=== PATIENT | female | born 1945 | race Caucasian/White ===

== ENCOUNTER 2018-08-24 07:20 | Inpatient (IN) ==
[2018-08-24] MEDS ORDERED: Lidocaine 1%/Epinephrine 1:100,000 Inj 50 ML Vial INFILTRATN ONE (07:57)
[2018-08-24 08:11] LABS: Baso % (Auto) 0.2 % (0.0-2.0); Eos # (Auto) 0.1 th/mm3 (0.0-0.4); Eos % (Auto) 1.1 % (0.0-4.0); Hematocrit 38.6 % (35.0-46.0); Hemoglobin 12.8 gm/dL (11.6-15.3); Lymph # (Auto) 0.5 th/mm3 (1.0-4.8); Lymph % (Auto) 5.5 % (9.0-44.0); Mean Corpuscular HGB Conc 33.1 % (32.0-36.0); Mean Corpuscular Volume 96.6 fL (80.0-100.0); Mean Platelet Volume 7.5 fL (7.0-11.0); Mono # (Auto) 0.4 th/mm3 (0.0-0.9); Mono % (Auto) 4.3 % (0.0-8.0); Neut # (Auto) 7.3 th/mm3 (1.8-7.7); Neut % (Auto) 88.9 % (16.0-70.0); Platelet Count 244 th/mm3 (150-450); Red Blood Count 3.99 mil/mm3 (4.00-5.30); Red Cell Distribution Width 12.1 % (11.6-17.2); White Blood Count 8.3 th/mm3 (4.0-11.0)
[2018-08-24 08:19] LABS: Chloride 100 meq/L (98-107); Potassium 3.9 meq/L (3.5-5.1); Sodium 137 meq/L (136-145)
[2018-08-24 08:23] LABS: Anion Gap 8 meq/L (5-15); Blood Urea Nitrogen 26 mg/dL (7-18); Calcium 8.6 mg/dL (8.5-10.1); Carbon Dioxide 28.6 meq/L (21.0-32.0); Glucose,Random 287 mg/dL (74-106)
[2018-08-24 08:24] LABS: Activated Partial Thrombo Time 23.4 sec (23.4-31.7); INR 1.1 Ratio; Prothrombin Time 10.7 sec (9.8-11.6)
[2018-08-24 08:26] LABS: Alanine Aminotransferase 36 U/L (10-53); Aspartate Aminotransferase 24 U/L (15-37); Glomerular Filtration Rate 57 mL/min (>89)
[2018-08-24 08:28] LABS: Total Protein 6.5 g/dL (6.4-8.2)
[2018-08-24 08:29] LABS: Alkaline Phosphatase 53 U/L (45-117)
--- NOTE | 2018-08-24 09:10 | CT ---
EXAM DATE: 08/24/2018 8:58 AM EST AGE/SEX: 72 years / Female INDICATIONS: Blood in stool. CLINICAL DATA: This is the patient's initial encounter. Patient reports that signs and symptoms have been present for 1 day and indicates a pain score of 0/10. MEDICAL/SURGICAL HISTORY: Diabetes. Hypercholesterolemia. None. ORAL CONTRAST: No oral contrast ingested. RADIATION DOSE: 16.87 CTDI (mGy) COMPARISON: TLI, US PELVIS, COMPLETE, 01/16/2017. TLI, US TRANSVAGINAL, 01/15/2017. . TECHNIQUE: Multiple contiguous axial images were obtained through the abdomen and pelvis following b olus infusion of 95 ml Omnipaque 350 (iohexol) nonionic water-soluble contrast as a single exam dos e. No oral contrast ingested. Using automated exposure control and adjustment of the mA and/or kV ac cording to patient size, radiation dose was kept as low as reasonably achievable to obtain optimal di agnostic quality images. DICOM format image data is available electronically for review and comparis on. FINDINGS: Lower Lungs: The visualized lower lungs are clear. Liver: The liver has a homogeneous density without space-occupying lesion. There is no dilation of th e biliary tree. There is a densely calcified gallstone identified within the gallbladder neck. No abn ormal wall thickening. Spleen: Homogeneous density without enlargement. Pancreas: Unremarkable without mass or calcification. Kidneys: Normal in size and shape. No evidence of surrounding mass or hydronephrosis. Small right re nal cyst. Adrenal Glands: Unremarkable. Aorta: Scattered atherosclerosis. No evidence of aneurysm. Bowel/Mesentery: There is an ill-defined 5 cm area of soft tissue attenuation identified within the cecum at the ileocecal valve. The adjacent mesenteric fat is normal in appearance. Abdominal Wall: Intact. Retroperitoneum: No evidence of adenopathy in the retrocrural, para-aortic, or deep pelvic regions. Bladder: Contours are smooth. Reproductive Organs: Multiple calcified fibroadenomas within the uterus. Inguinal: The inguinal region is unremarkable without evidence of adenopathy. Bony Structures: Osseous structures are significant for extensive degenerative changes within the fa cet joints, degenerative disc changes. There is a focus of air adjacent to the right and left SI join ts. CONCLUSION: 1. 5 cm soft tissue attenuating mass identified within the lumen of the cecum at the ileocecal valve . This could represent a bolus of stool, however, given the patient's clinical presentation a mass in this location should be further evaluated with colonoscopy. 2. No evidence of inflammatory process within the abdomen or pelvis or evidence of adenopathy. Electronically signed by: Peggy Diallo MD 08/24/2018 9:09 AM EST
--- NOTE | 2018-08-24 09:40 | ED ---
HPI General Chief complaint: Fall Stated complaint: Dizzy/fell laceration 1hr TELEPHONE SERVICE REPRESENTATIVE Time Seen by Provider: 08/24/18 07:57 Source: patient Mode of arrival: ambulatory Limitations: no limitations History of Present Illness MD complaint: Reports gross hematochezia Onset (ago): minute(s) Severity: mild Relieving factors: none Exacerbating factors: none Context: Denies history of GI bleed and anticoagulant use Associated symptoms: Reports weakness (Weakness and dizziness which led to a fall and a resultant right eyebrow laceration) Treatments Prior to Arrival: Reports none Related Data Home Medications Medication Instructions Recorded Confirmed glyburide 5 mg PO DAILY 08/24/18 08/24/18 losartan mg PO DAILY 08/24/18 metformin 500 mg PO BID 08/24/18 08/24/18 simvastatin 20 mg PO QPM 08/24/18 08/24/18 Allergies Allergy/AdvReac Type Severity Reaction Status Date / Time HANNA Inhibitors Allergy Lethargy Verified 08/24/18 07:27 Review of Systems ROS: all other systems reviewed are negative [facility] Medical History Medical History Diabetes 1.5, managed as type 2 (Acute) High cholesterol (Acute) Vertigo (Acute) Social History Social History Substance History: No History of Abuse Smoking Status: Never smoker How Often Do You Have a Drink Containing Alcohol: 2 to 3 times a week Recent Travel in [facility] within the Last 8 Weeks: No Recent Out of Country Travel within the Last 8 Weeks: No Immunization History Tetanus Immunization: <5 Years Exam Const General: cooperative, healthy appearing, comfortable, no acute distress and well developed Orientation: alert, awake and oriented x3 HENMT Head: normal to inspection, normocephalic and laceration (Right eyebrow) Eyes Alignment and Position: alignment normal and position abnormal Conjunctivae: conjunctivae normal Sclera: sclerae normal EOM: EOM intact bilaterally Neck Neck: normal visual inspection and full ROM Chest Chest: normal inspection of the chest Resp Effort & Inspection: normal respiratory effort and able to speak in complete sentences Auscultation: clear to auscultation bilaterally Cardio Rate: regular rate Rhythm: regular rhythm GI Inspection: normal to inspection Palpation: soft and nontender Rectal Exam: normal sphincter tone, abnormal stool maroon, heme positive stool and No mass Back/Spine/Pelvis Cervical Spine: cervical ROM normal Thoracic/Lumbar Spine: thoraco-lumbar ROM normal Skin General: no rashes or lesions noted, turgor normal and dry skin Neuro General: alert, awake, oriented x3, moves all extremities and CN's II-XI intact bilaterally Extrem General: normal to inspection and full ROM Psych Appearance: grossly normal Mental Status: mental status grossly normal Speech and Movement: speech and movement normal Mood: congruent mood Affect: normal affect Attitude: cooperative Thought Process: normal Thought Content: normal Judgment: judgment good Course Consultations Consultation #1: Dr. Blanchard will admit Time: 09:50 Initial Documented Vital Signs Temperature 97.6 F 08/24/18 07:22 Pulse Rate 84 08/24/18 07:22 Respiratory Rate 17 08/24/18 07:22 Blood Pressure 117/59 L 08/24/18 07:22 Pulse Oximetry 98 08/24/18 07:22 Last Documented Vital Signs Temperature 97.6 F 08/24/18 07:22 Pulse Rate 80 08/24/18 09:05 Respiratory Rate 18 08/24/18 09:05 Blood Pressure 113/58 L 08/24/18 09:05 Pulse Oximetry 98 08/24/18 09:05 Critical Care Time Critical Care Time: Yes Total Critical Care Time: 40 Attestation: Time to perform other separately billable procedures was not included in the critical care time. My time did not include minutes spent treating any other patients simultaneously or on activities that did not directly contribute to the patient's treatment. The services I provided to this patient were to treat and/or prevent clinically significant deterioration due to GI bleed with near syncope I provided critical care services requiring my management, as noted below: Chart data review, documentation time, medication orders and management, vital sign assessments/reviewing monitor data, ordering and reviewing lab tests, ordering and interpreting/reviewing x-rays and diagnostic studies, care of the patient and discussion of the patient with the admitting physicians Medical Decision Making MDM Narrative Medical decision making narrative: This patient presents with acute rectal bleeding followed by a near syncopal episode/fall which led to a right eyebrow laceration. This all started just shortly prior to presentation. She reports to grossly bloody stools. She denies any previous similar history. She denies any associated fevers. She denies abdominal pain. She does not take an anticoagulant. Her exam is remarkable for the right eyebrow laceration and burgundy colored, grossly positive stools. Her workup has been completed. The CT is concerning for a mass at the ileocecal junction. I will request admission to the hospital for trending of her CBC as well a GI consultation. Her eyebrow laceration has been repaired by Lee Ann Guido PA-C. Orthostatic vital signs are negative. Medical Screen Exam Complete: Yes Emergency Medical Condition: Yes Differential Diagnosis Differential Diagnosis: Differential diagnosis includes but is not limited to hemorrhoid, diverticulitis, cancer, coagulopathy Lab Data Lab results reviewed: Yes I reviewed the patient's lab results. Result diagrams: 08/24/18 07:50 08/24/18 07:50 Lab Results 08/24/18 08/24/18 08/24/18 Range/Units 07:50 07:50 07:50 CBC w Diff Auto diff final WBC 8.3 (4.0-11.0) th/mm3 RBC 3.99 L (4.00-5.30) mil/mm3 Hgb 12.8 (11.6-15.3) gm/dL Hct 38.6 (35.0-46.0) % MCV 96.6 (80.0-100.0) fL MCH 32.0 (27.0-34.0) pg MCHC 33.1 (32.0-36.0) % RDW 12.1 (11.6-17.2) % Plt Count 244 (150-450) th/mm3 MPV 7.5 (7.0-11.0) fL Neut % (Auto) 88.9 H (16.0-70.0) % Lymph % (Auto) 5.5 L (9.0-44.0) % [place] % (Auto) 4.3 (0.0-8.0) % Eos % (Auto) 1.1 (0.0-4.0) % Baso % (Auto) 0.2 (0.0-2.0) % Neut # (Auto) 7.3 (1.8-7.7) th/mm3 Lymph # (Auto) 0.5 L (1.0-4.8) th/mm3 [place] # (Auto) 0.4 (0.0-0.9) th/mm3 Eos # (Auto) 0.1 (0.0-0.4) th/mm3 Baso # (Auto) 0.0 (0.0-0.2) th/mm3 WBC Differential . Differential Comment . PT 10.7 (9.8-11.6) sec INR 1.1 Ratio APTT 23.4 (23.4-31.7) sec Sodium 137 (136-145) meq/L Potassium 3.9 (3.5-5.1) meq/L Chloride 100 (98-107) meq/L Carbon Dioxide 28.6 (21.0-32.0) meq/L Anion Gap 8 (5-15) meq/L BUN 26 H (7-18) mg/dL Creatinine 0.97 (0.50-1.00) mg/dL Estimated GFR 57 L (>89) mL/min Random Glucose 287 H (74-106) mg/dL Calcium 8.6 (8.5-10.1) mg/dL Total Bilirubin 0.4 (0.2-1.0) mg/dL AST 24 (15-37) U/L ALT 36 (10-53) U/L Alkaline Phosphatase 53 (45-117) U/L Total Protein 6.5 (6.4-8.2) g/dL Albumin 4.0 (3.4-5.0) g/dL Blood Type Blood Type Recheck 08/24/18 Range/Units 07:50 CBC w Diff WBC (4.0-11.0) th/mm3 RBC (4.00-5.30) mil/mm3 Hgb (11.6-15.3) gm/dL Hct (35.0-46.0) % MCV (80.0-100.0) fL MCH (27.0-34.0) pg MCHC (32.0-36.0) % RDW (11.6-17.2) % Plt Count (150-450) th/mm3 MPV (7.0-11.0) fL Neut % (Auto) (16.0-70.0) % Lymph % (Auto) (9.0-44.0) % [place] % (Auto) (0.0-8.0) % Eos % (Auto) (0.0-4.0) % Baso % (Auto) (0.0-2.0) % Neut # (Auto) (1.8-7.7) th/mm3 Lymph # (Auto) (1.0-4.8) th/mm3 [place] # (Auto) (0.0-0.9) th/mm3 Eos # (Auto) (0.0-0.4) th/mm3 Baso # (Auto) (0.0-0.2) th/mm3 WBC Differential Differential Comment PT (9.8-11.6) sec INR Ratio APTT (23.4-31.7) sec Sodium (136-145) meq/L Potassium (3.5-5.1) meq/L Chloride (98-107) meq/L Carbon Dioxide (21.0-32.0) meq/L Anion Gap (5-15) meq/L BUN (7-18) mg/dL Creatinine (0.50-1.00) mg/dL Estimated GFR (>89) mL/min Random Glucose (74-106) mg/dL Calcium (8.5-10.1) mg/dL Total Bilirubin (0.2-1.0) mg/dL AST (15-37) U/L ALT (10-53) U/L Alkaline Phosphatase (45-117) U/L Total Protein (6.4-8.2) g/dL Albumin (3.4-5.0) g/dL Blood Type A Positive Blood Type Recheck Required Imaging Data Radiologist's impression: Abdomen/Pelvis CT 08/24/18 07:57 CONCLUSION: 1. 5 cm soft tissue attenuating mass identified within the lumen of the cecum at the ileocecal valve. This could represent a bolus of stool, however, given the patient's clinical presentation a mass in this location should be further evaluated with colonoscopy. 2. No evidence of inflammatory process within the abdomen or pelvis or evidence of adenopathy. Discharge Plan Discharge Disposition Patient Disposition: 30 Still Patient Discharge Details Diagnosis: Bright red rectal bleeding, Eyebrow laceration Physicians Team ED Provider: Kristina Cuevas Primary Care Provider: NON STAFF,PROVIDER Rxs /Orders / Referrals /Forms Prescriptions: No Action losartan 50 mg Tablet PO DAILY RF: 0 metformin 500 mg Tablet 500 mg PO BID RF: 0 glyburide 5 mg Tablet 5 mg PO DAILY RF: 0 simvastatin 20 mg Tablet 20 mg PO QPM RF: 0 Status ED Status: Ready for Discharge
[2018-08-24] MEDS: Pantoprazole Inj 40 MG Vial IV.PUSH SCH ×2 (10:24→21:48)
[2018-08-24] MEDS: Sod Chloride 0.9% Inj 1,000 ML IV.CONT SCH ×2 (10:24→21:48)
--- NOTE | 2018-08-24 10:36 | P.HPIM ---
History of Present Illness Primary Care Physician: PROVIDER NON STAFF History of Present Illness: This patient is a 72-year-old female with a diagnosis of hypertension, dyslipidemia, rheumatoid arthritis, diabetes mellitus type 2. The patient lives in [place] and spends her maher here in [place]. The patient states that she was having a bowel movement this morning and noticed a significant amount of bright red blood in the toilet after a bowel movement. After the bowel movement she did feel dizzy and laid down in bed and her symptoms improved. She said an hour later she had the urge to have another bowel movement and she went to the bathroom and again passed a large amount of watery bloody stool. She then got up from the toilet and felt dizzy and ended up falling down hitting her head on the floor. She suffered a laceration over the right eyebrow. She was then brought into the emergency department to be evaluated. She received sutures over the right eyebrow. I was then called to evaluate the patient and admit her. Past medical history hypertension, dyspnea, rheumatoid arthritis, diabetes mellitus type 2 Family history significant for hypertension, diabetes mellitus type 2. Review of Systems All other systems reviewed negative except as stated in HPI PMFSH - History History Provided By: Patient, Family Member - Medical History Medical History: Medical History (Last Reviewed 08/24/18 @ 09:36 by Kristina Cuevas) Diabetes 1.5, managed as type 2 High cholesterol Vertigo - Tobacco History Smoking Status: Never smoker - Alcohol History How Often Do You Have a Drink Containing Alcohol: 2 to 3 times a week - Substance Use History Substance History: No History of Abuse - Travel History Recent Travel in the [facility] Within the Last 8 Weeks: No Recent Travel Out of the Country Within the Last 8 Weeks: No - Immunization History Tetanus Immunization: <5 Years Medications and Allergies Active Medications: Active Medications Sodium Chloride (Ns Inj) 1,000 mls @ 100 mls/hr IV.CONT .Q10H KIZZY Last Admin: 08/24/18 10:24 Dose: 100 mls/hr Pantoprazole Sodium (Protonix Inj) 40 mg IV.PUSH Q12H KIZZY Last Admin: 08/24/18 10:24 Dose: 40 mg Polyethylene Glycol/Electrolytes (Colyte Liq) 2,000 ml PO ONCE ONE Stop: 08/24/18 11:01 Sodium Chloride (Ns Flush) 2 ml IV.FLUSH PRN PRN PRN Reason: FLUSH AFTER USING IV ACCESS Allergies Allergy/AdvReac Type Severity Reaction Status Date / Time HANNA Inhibitors Allergy Lethargy Verified 08/24/18 07:27 Home Medications Medication Instructions Recorded Confirmed Type glyburide 5 mg PO DAILY 08/24/18 08/24/18 History losartan mg PO DAILY 08/24/18 History metformin 500 mg PO BID 08/24/18 08/24/18 History simvastatin 20 mg PO QPM 08/24/18 08/24/18 History Exam Vital signs: Vital Signs 08/24/18 07:22 08/24/18 08:10 08/24/18 09:05 Temperature 97.6 F Pulse Rate 84 75 80 Respiratory Rate 17 18 Blood Pressure 117/59 L 113/58 L Pulse Oximetry 98 100 98 Intake & Output 08/23/18 08/24/18 08/24/18 18:59 06:59 18:59 Weight 80 kg Narrative: General patient in no acute distress HEENT extraocular movements are intact, clear oropharyngeal mucosa, no JVD Cardiovascular S1-S2 audible, 2 out of 6 systolic ejection murmur heard best at the right sternal border. Respiratory clear to auscultation bilaterally Abdomen soft, nontender, nondistended, normal bowel sounds Extremities no edema 2+ distal pulses in bilateral upper and lower extremities Neuro cranial nerves II through XII intact Results - Labs CBC & Chem 7: 08/24/18 07:50 08/24/18 07:50 Labs: Short CBC 08/24/18 Range/Units 07:50 WBC 8.3 (4.0-11.0) th/mm3 Hgb 12.8 (11.6-15.3) gm/dL Hct 38.6 (35.0-46.0) % Plt Count 244 (150-450) th/mm3 BMP 08/24/18 07:50 Sodium 137 Potassium 3.9 Chloride 100 Carbon Dioxide 28.6 BUN 26 H Creatinine 0.97 Calcium 8.6 Liver Function 08/24/18 Range/Units 07:50 Total Bilirubin 0.4 (0.2-1.0) mg/dL AST 24 (15-37) U/L ALT 36 (10-53) U/L Alkaline Phosphatase 53 (45-117) U/L Albumin 4.0 (3.4-5.0) g/dL - Imaging Impressions Abdomen/Pelvis CT 08/24/18 07:57 CONCLUSION: 1. 5 cm soft tissue attenuating mass identified within the lumen of the cecum at the ileocecal valve. This could represent a bolus of stool, however, given the patient's clinical presentation a mass in this location should be further evaluated with colonoscopy. 2. No evidence of inflammatory process within the abdomen or pelvis or evidence of adenopathy. Caprini VTE Risk Assessment Caprini VTE Risk Assessment: Moderate/High Risk (score >= 2) Caprini Risk Assessment Model: Point Value = 1 Point Value = 2 Point Value = 3 Point Value = 5 Age 41-60 Minor surgery BMI > 25 kg/m2 Swollen legs Varicose veins or History of unexplained or recurrent spontaneous Oral contraceptives or hormone replacement Sepsis (< 1 month) Serious lung disease, including pneumonia (< 1 month) Abnormal pulmonary function Acute myocardial infarction Congestive heart failure (< 1 month) History of inflammatory bowel disease Medical patient at bed rest Age 61-74 Arthroscopic surgery Major open surgery (> 45 min) Laparoscopic surgery (> 45 min) Malignancy Confined to bed (> 72 hours) Immobilizing plaster cast Central venous access Age >= 75 History of VTE Family history of VTE Factor V Leiden Prothrombin [id number] Lupus anticoagulant Anticardiolipin antibodies Elevated serum homocysteine Heparin-induced thrombocytopenia Other congenital or acquired thrombophilia Stroke (< 1 month) Elective arthroplasty Hip, pelvis, or leg fracture Acute spinal cord injury (< 1 month) Prophylaxis Regimen: Total Risk Factor Score Risk Level Prophylaxis Regimen 0-1 Low Early ambulation 2 Moderate Order ONE of the following: *Sequential Compression Device (SCD) *Heparin 5000 units SQ BID 3-4 Higher Order ONE of the following medications: *Heparin 5000 units SQ TID *Enoxaparin/Lovenox 40 mg SQ daily (WT < 150 kg, CrCl > 30 mL/min) *Enoxaparin/Lovenox 30 mg SQ daily (WT < 150 kg, CrCl > 10-29 mL/min) *Enoxaparin/Lovenox 30 mg SQ BID (WT < 150 kg, CrCl > 30 mL/min) AND/OR *Sequential Compression Device (SCD) 5 or more Highest Order ONE of the following medications: *Heparin 5000 units SQ TID (Preferred with Epidurals) *Enoxaparin/Lovenox 40 mg SQ daily (WT < 150 kg, CrCl > 30 mL/min) *Enoxaparin/Lovenox 30 mg SQ daily (WT < 150 kg, CrCl > 10-29 mL/min) *Enoxaparin/Lovenox 30 mg SQ BID (WT < 150 kg, CrCl > 30 mL/min) AND *Sequential Compression Device (SCD) Assessment and Plan - Plan This patient is a 72-year-old female with a diagnosis of hypertension, dyslipidemia, rheumatoid arthritis, diabetes mellitus type 2. The patient lives in [place] and spends her maher here in [place]. The patient states that she was having a bowel movement this morning and noticed a significant amount of bright red blood in the toilet after a bowel movement. After the bowel movement she did feel dizzy and laid down in bed and her symptoms improved. She said an hour later she had the urge to have another bowel movement and she went to the bathroom and again passed a large amount of watery bloody stool. She then got up from the toilet and felt dizzy and ended up falling down hitting her head on the floor. She suffered a laceration over the right eyebrow. She was then brought into the emergency department to be evaluated. She received sutures over the right eyebrow. A CT scan of the abdomen pelvis shows a mass at the ileocecal junction. The patient says she was taking naproxen over the past few weeks for a sprained neck. 1. Acute lower GI bleed likely secondary to mass at the ileocecal junction. 2. Presyncope likely secondary to #1 The patient presented with the symptoms mentioned above. Hemoglobin is stable around 12. The patient is currently on Protonix. She does not remember when her last colonoscopy was. She says she has a foggy memory. GI has been consulted to evaluate the patient. Preparation for colonoscopy will begin. The patient will likely undergo colonoscopy tomorrow. She has been started on IV fluids. Patient will be kept n.p.o. For colonoscopy. We will follow-up with recognitions from GI. Patient felt dizzy after the bowel movement and suffered a fall hitting the right side of her head on the floor. CT scan of the head has been ordered. I will follow-up the results of the CT scan. Patient already received sutures over the right eyebrow. Patient does have a systolic ejection murmur. 2D echocardiogram ordered. 2. Hypertension Patient systolic blood pressures currently in the low 100s. We will continue monitor blood pressure. Her antihypertensives have been stopped. 3. Dyslipidemia Patient currently n.p.o. We will restart the patient's medications tomorrow. 4. Rheumatoid arthritis Naproxen has been held. Currently no complaints of pain. No DVT prophylaxis the patient is currently bleeding.
[2018-08-24 11:00] LABS: Creatine Kinase 168 U/L (26-192)
[2018-08-24] MEDS ORDERED: PEG 3350/E-Lyte Soln 4000 ML Bottle PO ONE ×2 (11:00→16:00)
--- NOTE | 2018-08-24 11:03 | CT ---
EXAM DATE: 08/24/2018 10:52 AM EST AGE/SEX: 72 years / Female INDICATIONS: Fall. Right frontal laceration. CLINICAL DATA: This is the patient's initial encounter. Patient reports that signs and symptoms have been present for 1 day and indicates a pain score of 0/10. MEDICAL/SURGICAL HISTORY: Diabetes. Hypertension. None. RADIATION DOSE: 54.47 CTDI (mGy) COMPARISON: No prior exams available for comparison. TECHNIQUE: CT of the head without contrast. Using automated exposure control and adjustment of the mA and/or kV according to patient size, radiation dose was kept as low as reasonably achievable to ob tain optimal diagnostic quality images. DICOM format image data is available electronically for revi ew and comparison. FINDINGS: Cerebrum: The ventricles are normal for age. No evidence of midline shift, mass lesion, hemorrhage or acute infarction. No extraaxial fluid collections are seen. Posterior Fossa: The cerebellum and brainstem are intact. The 4th ventricle is midline. The cerebe llopontine angle is unremarkable. Extracranial: The visualized portion of the orbits is intact. Skull: The calvaria is intact. No evidence of skull fracture. CONCLUSION: 1. Negative CT Head non contrast. . Electronically signed by: Peggy Diallo MD 08/24/2018 11:02 AM EST
--- NOTE | 2018-08-24 12:40 | P.CONGI ---
History of Present Illness Consult date: 08/24/18 Chief complaint: Lower GI bleed/Mass, Syncope History of Present Illness: Mrs. Macedo is a 72 year old female that comes to the ED for hematochezia and syncope. Patient states that early this morning patient states that early this morning she passed a bowel movement that was extremely bloody with a mix of diarrhea. She said that she felt extreme dizziness and felt on balance post bowel movement. A few hours later she had another bowel movement that was also filled with blood. When she got up she felt so imbalanced and she fell over resulting in a laceration of her right eyebrow. She states for the past 2 weeks she has been having abdominal pain bilaterally at the RLQ and LLQ that is a 2 out of 10 on the pain scale. She thought this was her diverticulosis because she had a similar episode not too long ago. Currently she feels weak with a headache and still feels lightheaded, she states she feels nauseous but has not vomited she denies any fever. She states that she has had increased insomina and "brain fog". She does state that for the past 3 days she has had increased her antacid use due to upset stomach and for the past 2 months she has taken naproxen every day for pain. she does not recall her last colonoscopy but thinks was 1-2 years ago. Past Family History: father with renal cancer Assessment: Ms. Macedo is a 72-year old female woman with a history of rheumatoid arthritis, hyperlipidemia, diabetes type 2 and diverticulosis who comes in due to hematochezia and syncope. CT scan revealed a 5 cm soft tissue mass at the lumen of the cecum at the ileocecal valve. Differential diagnosis: Cecal mass and Abdominal pain: 1 adenocarcinoma of the colon-due to the hematochezia abdominal pain and mass shown on CT adenocarcinoma is likely suggest doing a colonoscopy and check CEA 2. carcinoid syndrome due to presence of murmur, wheezing, brain fog, and the location of the mass at the ileocecal valve carcinoid is possible. Check 24hr urine 5-HIAA 3. Fecal mass- suggest colonoscopy 4. Lipoma of the abdomen Hematochezia: 1. Mass causing bleed 2. Diverticular bleed 3. colon ischemia 4. Colitis-UC, Crohns, or general colitis 5. Hemorrhoids 6. Intussusception caused by the cecal mas 7. AVM All require colonoscopy. Plan: 1. colonoscopy. No NSAIDs, stop Plaquenil bc can cause N/V, diarrhea, abdominal pain and dizziness 2. Continue IV fluids, monitor Hgb and RBC, keep NPO <Melany Hauser - Last Filed: 08/24/18 12:44> Consult date: 08/24/18 History of Present Illness: Patient was seen and examined by myself, agree with above differential diagnosis , patient will need colonoscopy, we will plan on doing that tomorrow <Noel Mendez - Last Filed: 08/24/18 15:32> PMFSH - History History Provided By: Patient - Medical History Medical History: Medical History (Last Reviewed 08/24/18 @ 09:36 by Kristina Cuevas) Diabetes 1.5, managed as type 2 High cholesterol Vertigo - Tobacco History Second Hand Smoke Exposure: No Smoking Status: Never smoker - Alcohol History How Often Do You Have a Drink Containing Alcohol: Never - Substance Use History Substance History: No History of Abuse - Travel History Recent Travel in the [place] Within the Last 8 Weeks: No Recent Travel Out of the Country Within the Last 8 Weeks: No - Immunization History Tetanus Immunization: <5 Years <Melany Hauser - Last Filed: 08/24/18 12:44> - Medical History Medical History: Medical History (Last Reviewed 08/24/18 @ 09:36 by Kristina Cuevas) Diabetes 1.5, managed as type 2 High cholesterol Vertigo <Noel Mendez - Last Filed: 08/24/18 15:32> Medications and Allergies Active Medications: Active Medications Sodium Chloride (Ns Inj) 1,000 mls @ 100 mls/hr IV.CONT .Q10H [facility] Last Infusion: 08/24/18 11:31 Dose: 100 mls/hr Pantoprazole Sodium (Protonix Inj) 40 mg IV.PUSH Q12H [facility] Last Admin: 08/24/18 10:24 Dose: 40 mg Sodium Chloride (Ns Flush) 2 ml IV.FLUSH PRN PRN PRN Reason: FLUSH AFTER USING IV ACCESS <Melany Hauser - Last Filed: 08/24/18 12:44> Active Medications: Active Medications Sodium Chloride (Ns Inj) 1,000 mls @ 100 mls/hr IV.CONT .Q10H [facility] Last Infusion: 08/24/18 11:31 Dose: 100 mls/hr Pantoprazole Sodium (Protonix Inj) 40 mg IV.PUSH Q12H [facility] Last Admin: 08/24/18 10:24 Dose: 40 mg Sodium Chloride (Ns Flush) 2 ml IV.FLUSH PRN PRN PRN Reason: FLUSH AFTER USING IV ACCESS <Hemaidan,Ammar - Last Filed: 08/24/18 15:32> Allergies Allergy/AdvReac Type Severity Reaction Status Date / Time HANNA Inhibitors Allergy Lethargy Verified 08/24/18 07:27 Home Medications Medication Instructions Recorded Confirmed Type glyburide 5 mg PO DAILY 08/24/18 08/24/18 History losartan mg PO DAILY 08/24/18 History metformin 500 mg PO BID 08/24/18 08/24/18 History simvastatin 20 mg PO QPM 08/24/18 08/24/18 History Exam Vital signs: Vital Signs 08/24/18 07:22 08/24/18 08:10 08/24/18 09:05 Temperature 97.6 F Pulse Rate 84 75 80 Respiratory Rate 17 18 Blood Pressure 117/59 L 113/58 L Pulse Oximetry 98 100 98 08/24/18 10:36 Temperature Pulse Rate 78 Respiratory Rate 16 Blood Pressure 116/64 Pulse Oximetry 98 Intake & Output 08/23/18 08/24/18 08/24/18 18:59 06:59 18:59 Intake Total 100 / 100 Balance 100 / 100 Weight 77.1 kg Intake: IV 100 / 100 NS Inj 1,000 ML @ 100 mls/hr IV 100 / 100 .CONT .Q10H [facility] Rx#:[id number] Other: Weight On Admission 80 kg - Constitutional no acute distress, average body habitus - Routine HEENT Exam Head: Present: normocephalic, laceration (right eyebrow, sutured) Eye: Present: EOMI, PERRL, conjunctivae pink ENT: Present: mucous membranes moist, dentition normal - Routine Neck Exam Present: normal carotid upstroke - Routine Respiratory Exam Present: accessory muscle use (possible bilateral lower lobe wheeze), wheezes - Routine Cardiovascular Exam Present: RRR, S1, S2, murmur (holosystolic murmur 1/6 murmur at aortic and pulmonic valve) - Routine Abdominal Exam Present: soft, normoactive bowel sounds, tenderness (pinpoint tenderness at right LQ) - Routine Extremities Exam Present: pulses intact, normal capillary refill - Routine Skin Exam Present: intact - Routine Neurological Exam Present: alert, oriented X3 <Melany Hauser - Last Filed: 08/24/18 12:44> Vital signs: Vital Signs 08/24/18 07:22 08/24/18 08:10 08/24/18 09:05 Temperature 97.6 F Pulse Rate 84 75 80 Respiratory Rate 17 18 Blood Pressure 117/59 L 113/58 L Pulse Oximetry 98 100 98 08/24/18 10:36 Temperature Pulse Rate 78 Respiratory Rate 16 Blood Pressure 116/64 Pulse Oximetry 98 Intake & Output 08/23/18 08/24/18 08/24/18 18:59 06:59 18:59 Intake Total 100 / 100 Balance 100 / 100 Weight 77.1 kg Intake: IV 100 / 100 NS Inj 1,000 ML @ 100 mls/hr IV 100 / 100 .CONT .Q10H [facility] Rx#:[id number] Other: Weight On Admission 80 kg <Noel Mendez - Last Filed: 08/24/18 15:32> Results - Labs CBC & Chem 7: 08/24/18 07:50 08/24/18 07:50 Labs: Laboratory Results - last 24 hr 08/24/18 08/24/18 08/24/18 07:50 07:50 07:50 CBC w Diff Auto diff final WBC 8.3 RBC 3.99 L Hgb 12.8 Hct 38.6 MCV 96.6 MCH 32.0 MCHC 33.1 RDW 12.1 Plt Count 244 MPV 7.5 Neut % (Auto) 88.9 H Lymph % (Auto) 5.5 L Thomas % (Auto) 4.3 Eos % (Auto) 1.1 Baso % (Auto) 0.2 Neut # (Auto) 7.3 Lymph # (Auto) 0.5 L Thomas # (Auto) 0.4 Eos # (Auto) 0.1 Baso # (Auto) 0.0 WBC Differential . Differential Comment . PT 10.7 INR 1.1 APTT 23.4 Sodium 137 Potassium 3.9 Chloride 100 Carbon Dioxide 28.6 Anion Gap 8 BUN 26 H Creatinine 0.97 Estimated GFR 57 L POC Glucose Random Glucose 287 H Calcium 8.6 Total Bilirubin 0.4 AST 24 ALT 36 Alkaline Phosphatase 53 Total Creatine Kinase Troponin I Total Protein 6.5 Albumin 4.0 Blood Type Blood Type Recheck Antibody Screen 08/24/18 08/24/18 08/24/18 07:50 07:50 11:34 CBC w Diff WBC RBC Hgb Hct MCV MCH MCHC RDW Plt Count MPV Neut % (Auto) Lymph % (Auto) Thomas % (Auto) Eos % (Auto) Baso % (Auto) Neut # (Auto) Lymph # (Auto) Thomas # (Auto) Eos # (Auto) Baso # (Auto) WBC Differential Differential Comment PT INR APTT Sodium Potassium Chloride Carbon Dioxide Anion Gap BUN Creatinine Estimated GFR POC Glucose 159 H Random Glucose Calcium Total Bilirubin AST ALT Alkaline Phosphatase Total Creatine Kinase 168 Troponin I Less than 0.02 L Total Protein Albumin Blood Type A Positive Blood Type Recheck Required Antibody Screen Negative - Imaging Impressions Head CT 08/24/18 00:00 CONCLUSION: 1. Negative CT Head non contrast. . Abdomen/Pelvis CT 08/24/18 07:57 CONCLUSION: 1. 5 cm soft tissue attenuating mass identified within the lumen of the cecum at the ileocecal valve. This could represent a bolus of stool, however, given the patient's clinical presentation a mass in this location should be further evaluated with colonoscopy. 2. No evidence of inflammatory process within the abdomen or pelvis or evidence of adenopathy. <Melany Hauser - Last Filed: 08/24/18 12:44> - Labs CBC & Chem 7: 08/24/18 07:50 08/24/18 07:50 Labs: Laboratory Results - last 24 hr 08/24/18 08/24/18 08/24/18 07:50 07:50 07:50 CBC w Diff Auto diff final WBC 8.3 RBC 3.99 L Hgb 12.8 Hct 38.6 MCV 96.6 MCH 32.0 MCHC 33.1 RDW 12.1 Plt Count 244 MPV 7.5 Neut % (Auto) 88.9 H Lymph % (Auto) 5.5 L Thomas % (Auto) 4.3 Eos % (Auto) 1.1 Baso % (Auto) 0.2 Neut # (Auto) 7.3 Lymph # (Auto) 0.5 L Thomas # (Auto) 0.4 Eos # (Auto) 0.1 Baso # (Auto) 0.0 WBC Differential . Differential Comment . PT 10.7 INR 1.1 APTT 23.4 Sodium 137 Potassium 3.9 Chloride 100 Carbon Dioxide 28.6 Anion Gap 8 BUN 26 H Creatinine 0.97 Estimated GFR 57 L POC Glucose Random Glucose 287 H Calcium 8.6 Total Bilirubin 0.4 AST 24 ALT 36 Alkaline Phosphatase 53 Total Creatine Kinase Troponin I Total Protein 6.5 Albumin 4.0 Blood Type Blood Type Recheck Antibody Screen 08/24/18 08/24/18 08/24/18 07:50 07:50 11:34 CBC w Diff WBC RBC Hgb Hct MCV MCH MCHC RDW Plt Count MPV Neut % (Auto) Lymph % (Auto) Thomas % (Auto) Eos % (Auto) Baso % (Auto) Neut # (Auto) Lymph # (Auto) Thomas # (Auto) Eos # (Auto) Baso # (Auto) WBC Differential Differential Comment PT INR APTT Sodium Potassium Chloride Carbon Dioxide Anion Gap BUN Creatinine Estimated GFR POC Glucose 159 H Random Glucose Calcium Total Bilirubin AST ALT Alkaline Phosphatase Total Creatine Kinase 168 Troponin I Less than 0.02 L Total Protein Albumin Blood Type A Positive Blood Type Recheck Required Antibody Screen Negative - Imaging Impressions Head CT 08/24/18 00:00 CONCLUSION: 1. Negative CT Head non contrast. . Abdomen/Pelvis CT 08/24/18 07:57 CONCLUSION: 1. 5 cm soft tissue attenuating mass identified within the lumen of the cecum at the ileocecal valve. This could represent a bolus of stool, however, given the patient's clinical presentation a mass in this location should be further evaluated with colonoscopy. 2. No evidence of inflammatory process within the abdomen or pelvis or evidence of adenopathy. <Noel Mendez - Last Filed: 08/24/18 15:32>
--- NOTE | 2018-08-24 16:25 | ECG ---
Date Performed: 08/24/2018 Time Performed: 10:17:24 PTAGE: 72 years EKG: SINUS ARRHYTHMIA Right ventricular conduction Disturbance Coronary slow anterior forces NO PREVIOUS TRACING DOCTOR: German Barnard Interpretating Date/Time 08/24/2018 16:24:00
[2018-08-24] MEDS ORDERED: Magnesium Citrate Liq 300 ML Bottle PO ONE (18:00)
[2018-08-24 20:09] LABS: Hematocrit 33.5 % (35.0-46.0); Hemoglobin 11.1 gm/dL (11.6-15.3)
[2018-08-24 23:49] LABS: Hematocrit 28.9 % (35.0-46.0); Hemoglobin 9.7 gm/dL (11.6-15.3)
[2018-08-25 06:09] LABS: Hematocrit 26.4 % (35.0-46.0); Hemoglobin 8.9 gm/dL (11.6-15.3)
[2018-08-25 06:48] LABS: Anion Gap 7 meq/L (5-15); Blood Urea Nitrogen 20 mg/dL (7-18); Calcium 7.3 mg/dL (8.5-10.1); Carbon Dioxide 28.9 meq/L (21.0-32.0); Chloride 110 meq/L (98-107); Glomerular Filtration Rate Greater Than 89 mL/min (>89); Glucose,Random 132 mg/dL (74-106); Magnesium 2.1 mg/dL (1.5-2.5); Potassium 3.4 meq/L (3.5-5.1); Sodium 146 meq/L (136-145)
[2018-08-25 07:34] LABS: Calcium-Albumin Corrected 8.5 mg/dL (8.5-10.1); Total Protein 4.9 g/dL (6.4-8.2)
--- NOTE | 2018-08-25 07:54 | ECHRPT ---
Indication: cva/tia CONCLUSIONS Normal left ventricular size. Wall thickness is normal. The left ventricular systolic function is normal with an estimated ejection fraction in the range of 60-65% Nryuy-qk-jxhn mitral valve regurgitation. Aortic valve sclerosis is present. There is mild tricuspid valve regurgitation. BP: / HR: Rhythm: MEASUREMENTS (Male / Female) Normal Values Technical Quality: 2D ECHO LV Diastolic Diameter PLAX 3.3 cm 4.2 - 5.9 / 3.9 - 5.3 cm LV Systolic Diameter PLAX 2.5 cm IVS Diastolic Thickness 1.0 cm 0.6 - 1.0 / 0.6 - 0.9 cm LVPW Diastolic Thickness 1.0 cm 0.6 - 1.0 / 0.6 - 0.9 cm LV Relative Wall Thickness 0.6 RV Internal Dim ED PLAX 2.5 cm LVOT Diameter 1.8 cm Aortic Root Diameter 2.5 cm LA Systolic Diameter LX 2.2 cm 3.0 - 4.0 / 2.7 - 3.8 cm LV Ejection Fraction MOD BP 68.6 % >= 55 % LV Ejection Fraction MOD 4C 67.7 % LV Ejection Fraction 4C AL 68.6 % LV Ejection Fraction MOD 2C 65.2 % LV Ejection Fraction 2C AL 66.0 % M-MODE Aortic Root Diameter MM 2.4 cm LA Systolic Diameter MM 3.3 cm LA Ao Ratio MM 1.4 AV Cusp Separation MM 1.5 cm DOPPLER AV Peak Velocity 238.5 cm/s AV Peak Gradient 22.8 mmHg AV Mean Gradient 10.5 mmHg AV Velocity Time Integral 48.9 cm LVOT Peak Velocity 130.0 cm/s LVOT Peak Gradient 6.8 mmHg LVOT Velocity Time Integral 24.0 cm AV Area Cont Eq vti 1.3 cm AV Area Cont Eq pk 1.4 cm Mitral E Point Velocity 66.4 cm/s Mitral A Point Velocity 120.0 cm/s Mitral E to A Ratio 0.6 LV E' Lateral Velocity 9.1 cm/s Mitral E to LV E' Lateral Ratio 7.3 LV E' Septal Velocity 2.7 cm/s Mitral E to LV E' Septal Ratio 24.3 TR Peak Velocity 210.0 cm/s TR Peak Gradient 17.6 mmHg Right Atrial Pressure 10.0 mmHg Pulmonary Artery Systolic Pressu 27.6 mmHg Right Ventricular Systolic Press 27.6 mmHg PV Peak Velocity 92.8 cm/s PV Peak Gradient 3.4 mmHg FINDINGS LEFT VENTRICLE Normal left ventricular size. Wall thickness is normal. The left ventricular systolic function is normal with an estimated ejection fraction in the range of 60-65%. Doppler parameters are consistent with impaired left ventricular relaxtion (grade 1 diastolic dysfun ction). RIGHT VENTRICLE Normal right ventricular size and systolic function. LEFT ATRIUM The left atrial size is normal. RIGHT ATRIUM The right atrial size is normal. ATRIAL SEPTUM Normal atrial septal thickness without atrial level shunting by limited color doppler interrogation. AORTA The aortic root and proximal ascending aorta are normal in size on limited imaging. MITRAL VALVE Rixik-rb-gvvu mitral valve regurgitation. AORTIC VALVE Aortic valve sclerosis is present. TRICUSPID VALVE There is mild tricuspid valve regurgitation. PULMONARY VALVE No pulmonary valve regurgitation or stenosis. VESSELS The inferior vena cava is normal in size. PERICARDIUM No pericardial effusion. Girish Reynoso MD (Electronically Signed) Final Date:25 August 2018 07:53
[2018-08-25] MEDS: Sod Chloride 0.9% Inj 1,000 ML IV.CONT SCH ×2 (09:21→17:23)
[2018-08-25] MEDS: Pantoprazole Inj 40 MG Vial IV.PUSH SCH ×2 (09:22→22:30)
--- NOTE | 2018-08-25 09:38 | P.PNIM ---
Subjective Interval history: Patient says she had an episode of dizziness where she almost passed out last night after having a bowel movement. She currently does not have any complaints while laying down in bed. Physical Exam Vital signs: Vital Signs 08/24/18 10:36 08/24/18 11:30 08/24/18 11:31 Temperature 96.5 F L Pulse Rate 78 80 88 Respiratory Rate 16 20 Blood Pressure 116/64 104/56 L Pulse Oximetry 98 97 08/24/18 16:15 08/24/18 20:00 08/24/18 20:15 Temperature 97.0 F L Pulse Rate 83 95 H 86 Respiratory Rate 18 Blood Pressure 100/57 L Pulse Oximetry 93 L 08/25/18 00:15 08/25/18 04:00 08/25/18 08:00 Temperature 98.3 F 98.7 F Pulse Rate 80 83 86 Respiratory Rate 18 18 Blood Pressure 121/60 121/61 Pulse Oximetry 95 97 Intake & Output 08/24/18 08/25/18 08/25/18 18:59 06:59 18:59 Intake Total 396 / 396 1940 / 1940 Output Total 1450 / 1450 2860 / 2860 Balance -1054 / -1054 -920 / -920 Weight 77.1 kg 80 kg Intake: IV 100 / 100 850 / 850 NS Inj 1,000 ML @ 100 mls/hr IV 100 / 100 850 / 850 .CONT .Q10H [facility] Rx#:[id number] Oral 296 / 296 1090 / 1090 Output: Urine 600 / 600 Stool 1450 / 1450 2260 / 2260 Other: Date of Last Bowel Movement 08/25/18 # Bowel Movements 5 Weight On Admission 80 kg Narrative: General patient laying down in bed. HEENT extraocular movements are intact, clear oropharyngeal mucosa, no JVD Cardiovascular S1-S2 audible, 2 out of 6 systolic ejection murmur heard best at the right sternal border. Respiratory clear to auscultation bilaterally Abdomen soft, nontender, nondistended, normal bowel sounds, no abdominal pain Extremities no edema 2+ distal pulses in bilateral upper and lower extremities Neuro cranial nerves II through XII intact Results - Labs CBC & Chem 7: 08/25/18 04:55 08/25/18 04:55 Laboratory Results - last 24 hr 08/24/18 08/24/18 08/24/18 07:50 07:50 11:34 Hgb Hct Sodium Potassium Chloride Carbon Dioxide Anion Gap BUN Creatinine Estimated GFR POC Glucose 159 H Random Glucose Calcium Prot Corrected Calcium Magnesium Total Creatine Kinase 168 Troponin I Less than 0.02 L Total Protein Blood Type A Positive Blood Type Recheck Required Antibody Screen Negative 08/24/18 08/24/18 08/24/18 15:51 19:32 23:40 Hgb 11.1 L 9.7 L Hct 33.5 L 28.9 L Sodium Potassium Chloride Carbon Dioxide Anion Gap BUN Creatinine Estimated GFR POC Glucose 169 H Random Glucose Calcium Prot Corrected Calcium Magnesium Total Creatine Kinase Troponin I Total Protein Blood Type Blood Type Recheck Antibody Screen 08/25/18 08/25/18 08/25/18 04:55 04:55 05:05 Hgb 8.9 L Hct 26.4 L Sodium 146 H Potassium 3.4 L Chloride 110 H D Carbon Dioxide 28.9 Anion Gap 7 BUN 20 H Creatinine 0.64 Estimated GFR Greater than 89 POC Glucose 147 H Random Glucose 132 H D Calcium 7.3 L* D Prot Corrected Calcium 8.5 Magnesium 2.1 Total Creatine Kinase Troponin I Total Protein 4.9 L D Blood Type Blood Type Recheck Antibody Screen 08/25/18 08:02 Hgb Hct Sodium Potassium Chloride Carbon Dioxide Anion Gap BUN Creatinine Estimated GFR POC Glucose 153 H Random Glucose Calcium Prot Corrected Calcium Magnesium Total Creatine Kinase Troponin I Total Protein Blood Type Blood Type Recheck Antibody Screen - Imaging Impressions Head CT 08/24/18 00:00 CONCLUSION: 1. Negative CT Head non contrast. . Assessment and Plan - Plan This patient is a 72-year-old female with a diagnosis of hypertension, dyslipidemia, rheumatoid arthritis, diabetes mellitus type 2. The patient lives in [place] and spends her maher here in [place]. The patient states that she was having a bowel movement this morning and noticed a significant amount of bright red blood in the toilet after a bowel movement. After the bowel movement she did feel dizzy and laid down in bed and her symptoms improved. She said an hour later she had the urge to have another bowel movement and she went to the bathroom and again passed a large amount of watery bloody stool. She then got up from the toilet and felt dizzy and ended up falling down hitting her head on the floor. She suffered a laceration over the right eyebrow. She was then brought into the emergency department to be evaluated. She received sutures over the right eyebrow. A CT scan of the abdomen pelvis shows a mass at the ileocecal junction. The patient says she was taking naproxen over the past few weeks for a sprained neck. 1. Acute lower GI bleed likely secondary to mass at the ileocecal junction. 2. Presyncope likely secondary to #1 The patient presented with the symptoms mentioned above. Hemoglobin is stable around has dropped nearly 3 to four-point since yesterday. Patient continues to have bloody bowel movements. Orthostats were positive. The patient had another episode of dizziness after having a bowel movement last night. GI has been consulted Plan is for colonoscopy this afternoon. Continue GoLYTELY prep for colonoscopy. Continue IV fluids Continue to monitor H&H. We will follow-up with recommendations from GI after the colonoscopy. Patient felt dizzy after the bowel movement and suffered a fall hitting the right side of her head on the floor. CT scan of the head is negative. Patient already received sutures over the right eyebrow. Patient does have a systolic ejection murmur. 2D echo shows an ejection fraction of 60-65%. No other significant abnormalities that could have caused her symptoms. 2. Hypertension Patient systolic blood pressures currently in the 120s. We will continue monitor blood pressure. Her antihypertensives have been stopped. We will adjust her medications if needed. 3. Dyslipidemia Patient currently n.p.o. we will restart the patient's home medications after the colonoscopy 4. Rheumatoid arthritis Naproxen has been held. Currently no complaints of pain. No DVT prophylaxis the patient is currently bleeding.
[2018-08-25] MEDS ORDERED: Potassium Chlor 20 mEq Premix 20 MEQ/100 ML PIGGYBACK IV.SIG ONE (09:43)
[2018-08-25 09:44] LABS: Baso % (Auto) 0.5 % (0.0-2.0); Hematocrit 25.3 % (35.0-46.0); Hemoglobin 8.5 gm/dL (11.6-15.3); Lymph # (Auto) 0.6 th/mm3 (1.0-4.8); Lymph % (Auto) 19.5 % (9.0-44.0); Mean Corpuscular HGB Conc 33.7 % (32.0-36.0); Mean Corpuscular Hemoglobin 32.8 pg (27.0-34.0); Mean Corpuscular Volume 97.2 fL (80.0-100.0); Mean Platelet Volume 7.5 fL (7.0-11.0); Mono # (Auto) 0.3 th/mm3 (0.0-0.9); Mono % (Auto) 8.4 % (0.0-8.0); Neut # (Auto) 2.4 th/mm3 (1.8-7.7); Neut % (Auto) 70.6 % (16.0-70.0); Platelet Count 204 th/mm3 (150-450); Red Cell Distribution Width 12.2 % (11.6-17.2); White Blood Count 3.3 th/mm3 (4.0-11.0)
[2018-08-25] MEDS: Calcium Carbonate 500 MG Tablet PO SCH ×2 (10:53→21:49)
[2018-08-25] MEDS ORDERED: Chlorhexidine Gluconate 2% 1 Pack (2 Cloths) TOPICAL ONE (12:53)
[2018-08-25] MEDS ORDERED: Metoprolol Tartrate 25 MG Tablet PO ONE (12:53)
[2018-08-25] MEDS ORDERED: Sodium Chlor 0.9% Inj 500 ML IV.SIG SCH (13:00)
[2018-08-25] MEDS ORDERED: Phenylephrine/NS 1000 MCG/10ML Syringe IV.PUSH ONE (15:50)
--- NOTE | 2018-08-25 16:12 | GIPROC ---
[facility] [address] [place] [address], [id number] COLONOSCOPY PROCEDURE REPORT EXAM DATE: 08/25/2018 PATIENT NAME: Marcela Macedo MR #: [id number] BIRTHDATE: 1945 ENDOSCOPIST: Corky Gabriel MD ORDER #: [id number] SKIING TEACHER: Max Kinsey and Farnaz Lopez STATUS: inpatient INDICATIONS: The patient is a 72 yr old female here for a colonoscopy due to iron deficiency anemia, control of bleeding, and hematochezia PROCEDURE PERFORMED: Colonoscopy, diagnostic MEDICATIONS: None and Per Anesthesia. PREP QUALITY: The [place] Bowel Prep Score was Right colon 1, Mid colon 1, and Left colon 1. Total = 3. ESTIMATED BLOOD LOSS: None CONSENT: The patient understands the risks and benefits of the procedure and understands that these risks include, but are not limited to: sedation, allergic reaction, infection, perforation and/or bleeding. Alternative means of evaluation and treatment include, among others: physical exam, x-rays, and/or surgical intervention. The patient elects to proceed with this endoscopic procedure. medical equipment was checked for proper function. Hand hygiene and appropriate measures for infection prevention was taken. After the risks, benefits and alternatives of the procedure were thoroughly explained, Informed consent was verified, confirmed and timeout was successfully executed by the treatment team. A digital exam revealed external hemorrhoids The New [id number] (Std Gastro) and [id number] endoscope was introduced through the anus and advanced to the cecum, which was identified by both the appendix and ileocecal valve. The instrument was then slowly withdrawn as the colon was fully examined. COLON FINDINGS: Severe diverticulosis was noted in the sigmoid colon. No bleeding was noted from the diverticulosis. Blood present throughout the colon. Terminal illeum blood free. Retroflexed views revealed internal hemorrhoids and Retroflexed views revealed small internal hemorrhoids The scope was then completely withdrawn from the patient and the procedure terminated. PROCEDURE WITHDRAWAL TIME:7minutes ADVERSE EVENTS: There were no complications. IMPRESSIONS: 1. Severe diverticulosis was noted in the sigmoid colon 2. Blood present throughout the colon. Terminal illeum blood free 3. Retroflexed views revealed internal hemorrhoids 4. Retroflexed views revealed small internal hemorrhoids 5. Revealed external hemorrhoids RECOMMENDATIONS: Bleeding scan. Type and screen for 2 units of PRBC. H/H q 8 hours RECALL: Return 1 month Colonoscopy Corky Gabriel MD eSigned: Corky Gabriel MD 08/25/2018 4:12 PM cc: PATIENT NAME: Marcela Macedo MR#: [id number]
--- NOTE | 2018-08-25 16:52 | MR ---
cc: Corky Gabriel MD, Samsor MD DATE: 08/25/2018 INDICATIONS FOR PROCEDURE: GI bleeding, abnormal CT scan suggestive of a cecal mass. DESCRIPTION OF PROCEDURE: After informed consent and explaining the risks of the procedure to the patient including bleeding, perforation and risk of anesthesia, Ms. Macedo was placed in the left lateral decubitus position and sedated with the help of anesthesia. Rectal exam was performed revealing hemorrhoids. These were nonbleeding. Colonoscope introduced from the rectum into the colon. Blood present throughout the colon. There was blood and blood clots throughout the colon. This impaired the visualization of the mucosa. There was no active bleeding seen. There was diverticulosis present throughout the left colon. None actively bleeding at this time. Scope advanced into the cecum. The cecum was identified by ileocecal valve and appendiceal orifice. Blood in the cecum as well. No gross masses seen. The scope advanced into the terminal ileum. There was no blood in the terminal ileum, suggesting bleeding in the colon. The scope was then withdrawn. Multiple areas of the colon were washed revealing normal mucosa. No mucosal abnormality identified except for diverticulosis. Retroflexion revealed internal hemorrhoids, grade 2, nonbleeding. IMPRESSION: 1. Blood throughout the colon. 2. Diverticulosis. 3. Hemorrhoids. RECOMMENDATIONS: Stat bleeding scan. Monitor hemoglobin and hematocrit, transfuse 1 unit of blood for hemoglobin under 8. Liquid diet at this time. We will follow with you. Corky Gabriel MD HZ/theodore , 04:19 PM , 04:25 PM
[2018-08-25] MEDS: Sodium Chlor 0.9% Inj 250 ML IV.SIG SCH (17:00)
[2018-08-25 17:56] LABS: Hematocrit 23.2 % (35.0-46.0); Hemoglobin 7.8 gm/dL (11.6-15.3)
--- NOTE | 2018-08-25 20:20 | NM ---
EXAM DATE: 08/25/2018 8:15 PM EST AGE/SEX: 72 years / Female INDICATIONS: Blood in stool. CLINICAL DATA: This is the patient's initial encounter. Patient reports that signs and symptoms have been present for 1 day and indicates a pain score of 5/10. MEDICAL/SURGICAL HISTORY: Diabetes mellitus type II. Hypercholesterolemia. None. COMPARISON: No prior exams available for comparison. TECHNIQUE: Following the modified in vitro labeling of autologous red cells, dynamic continuous image s were acquired for two hours. ?? DOSE: 20 mCi Tc 99m Ultratag Labeled Red Blood Cells IV IMAGING TIME: 1 hr , 30 min FINDINGS: Biodistribution: There is a very good labeling of red cells without significant uptake in the gastri c wall. There is good delineation of the blood pool of the spleen and abdominal vessels. Bleeding: There is activity seen in the right upper quadrant that traverses to the left upper quadr ant been down into the left-sided pelvis. This is thought to be related to bleeding at the proximal t ransverse colon. CONCLUSION: Positive GI bleeding scan with hemorrhage in the right quadrant believed to be in the proximal transv erse colon. Electronically signed by: Jase Rangel MD 08/25/2018 8:19 PM EST
[2018-08-26 01:44] LABS: Hematocrit 23.4 % (35.0-46.0); Hemoglobin 7.9 gm/dL (11.6-15.3)
[2018-08-26] MEDS ORDERED: Sodium Chlor 0.9% Inj 250 ML IV.SIG SCH ×2 (04:00→17:00)
[2018-08-26] MEDS: Sodium Chlor 0.9% Inj 250 ML IV.SIG SCH (04:39)
[2018-08-26] MEDS: Sod Chloride 0.9% Inj 1,000 ML IV.CONT SCH ×4 (05:39→21:00)
[2018-08-26] MEDS: Calcium Carbonate 500 MG Tablet PO SCH ×2 (08:35→21:02)
[2018-08-26] MEDS: Pantoprazole Inj 40 MG Vial IV.PUSH SCH ×3 (08:35→21:02)
[2018-08-26 10:55] LABS: Baso % (Auto) 0.4 % (0.0-2.0); Carbon Dioxide 24.7 meq/L (21.0-32.0); Eos % (Auto) 0.6 % (0.0-4.0); Hematocrit 22.5 % (35.0-46.0); Hemoglobin 7.6 gm/dL (11.6-15.3); Lymph # (Auto) 0.6 th/mm3 (1.0-4.8); Lymph % (Auto) 12.4 % (9.0-44.0); Magnesium 1.9 mg/dL (1.5-2.5); Mean Corpuscular HGB Conc 33.9 % (32.0-36.0); Mean Corpuscular Hemoglobin 32.5 pg (27.0-34.0); Mean Corpuscular Volume 95.9 fL (80.0-100.0); Mean Platelet Volume 7.9 fL (7.0-11.0); Mono # (Auto) 0.4 th/mm3 (0.0-0.9); Mono % (Auto) 7.3 % (0.0-8.0); Neut # (Auto) 3.9 th/mm3 (1.8-7.7); Neut % (Auto) 79.3 % (16.0-70.0); Platelet Count 149 th/mm3 (150-450); Red Blood Count 2.35 mil/mm3 (4.00-5.30); Red Cell Distribution Width 12.5 % (11.6-17.2); White Blood Count 4.9 th/mm3 (4.0-11.0)
[2018-08-26 11:44] LABS: Calcium-Albumin Corrected 8.7 mg/dL (8.5-10.1); Total Protein 4.1 g/dL (6.4-8.2)
--- NOTE | 2018-08-26 15:29 | P.DS ---
Date of admission: 08/25/18 09:41 Primary care physician: PROVIDER NON STAFF Brief History from admission: This patient is a 72-year-old female with a diagnosis of hypertension, dyslipidemia, rheumatoid arthritis, diabetes mellitus type 2. The patient lives in [place] and spends her maher here in [place]. The patient states that she was having a bowel movement this morning and noticed a significant amount of bright red blood in the toilet after a bowel movement. After the bowel movement she did feel dizzy and laid down in bed and her symptoms improved. She said an hour later she had the urge to have another bowel movement and she went to the bathroom and again passed a large amount of watery bloody stool. She then got up from the toilet and felt dizzy and ended up falling down hitting her head on the floor. She suffered a laceration over the right eyebrow. She was then brought into the emergency department to be evaluated. She received sutures over the right eyebrow. I was then called to evaluate the patient and admit her. Past medical history hypertension, dyspnea, rheumatoid arthritis, diabetes mellitus type 2 Family history significant for hypertension, diabetes mellitus type 2. DS: Summary Hospital Course: Patient was admitted, started on IV Protonix. Rapid drop in hemoglobin from around 11 to 7, underwent colonoscopy which showed diverticulosis and hemorrhoids but no source of active bleeding. Underwent bleeding scan which did show findings suggestive of bleeding in the transverse colon. Patient's hemoglobin remained stable after that and was tolerating p.o. intake well. - Time Spent with Patient Total time spent providing and/or coordinating discharge services: Less than 30 minutes - Quality: VTE Deep Vein Thrombosis/Pulmonary Embolism Present on Admission: No Exam Vital signs: Vital Signs 08/25/18 16:18 08/25/18 16:25 08/25/18 16:40 Temperature 98.7 F Pulse Rate 88 86 88 Respiratory Rate 16 16 16 Blood Pressure 95/47 L 117/61 131/63 Pulse Oximetry 97 97 98 08/25/18 20:00 08/25/18 20:55 08/25/18 21:07 Temperature 98.9 F 96.3 F L Pulse Rate 111 H 111 H 105 H Respiratory Rate 18 16 Blood Pressure 120/73 116/59 L Pulse Oximetry 95 99 08/25/18 21:32 08/25/18 22:25 08/25/18 23:23 Temperature 98.2 F 98.4 F 97.8 F Pulse Rate 100 H 100 H 88 Respiratory Rate 16 16 18 Blood Pressure 121/58 L 131/60 113/56 L Pulse Oximetry 99 98 96 08/26/18 00:00 08/26/18 04:00 08/26/18 04:41 Temperature 97.8 F 97.4 F L 97.0 F L Pulse Rate 104 H 103 H 111 H Respiratory Rate 18 18 18 Blood Pressure 113/56 L 133/66 105/59 L Pulse Oximetry 96 96 98 08/26/18 04:59 08/26/18 07:30 08/26/18 08:00 Temperature 97.8 F 97.9 F 97.9 F Pulse Rate 103 H 96 H 101 H Respiratory Rate 16 16 16 Blood Pressure 122/60 120/65 120/65 Pulse Oximetry 98 98 98 08/26/18 12:00 08/26/18 14:24 Temperature 98.3 F Pulse Rate 95 H 86 Respiratory Rate 16 Blood Pressure 128/58 L Pulse Oximetry 97 Intake & Output 08/25/18 08/26/18 08/26/18 18:59 06:59 18:59 Intake Total 2900 / 2900 2365 / 2365 400 / 400 Balance 2900 / 2900 2365 / 2365 400 / 400 Weight 78.7 kg Intake: IV 1950 / 1950 1000 / 1000 NS Inj 1,000 ML @ 100 mls/hr IV 1850 / 1850 1000 / 1000 .CONT .Q10H KIZZY Rx#:[id number] KCl 20 mEq Premix Inj 20 meq In 100 / 100 100 ml @ 50 mls/hr IV.SIG ONCE ONE Rx#:[id number] Oral 965 / 965 Anesthesia Amount 950 / 950 Other 400 / 400 Rbc As-3 Leukoreduced Unit 400 / 400 [id number] Intake (Blood Product) Amt 400 / 400 Rbc As-3 Leukoreduced Unit 0 / 0 [id number] Rbc As-3 Leukoreduced Unit 400 / 400 [id number] Other: # Voids 1 # Bowel Movements 5 4 Narrative: Abdomen soft, nontender, nondistended mild general pallor Results Procedures completed during hospitalization: Colonoscopy Labs on day of discharge: Labs from last 24 hours 08/26/18 08/26/18 08/26/18 14:59 09:45 09:45 CBC w Diff Auto diff final WBC 4.9 RBC 2.35 L Hgb 7.6 L Hct 22.5 L MCV 95.9 MCH 32.5 MCHC 33.9 RDW 12.5 Plt Count 149 L MPV 7.9 Neut % (Auto) 79.3 H Lymph % (Auto) 12.4 [place] % (Auto) 7.3 Eos % (Auto) 0.6 Baso % (Auto) 0.4 Neut # (Auto) 3.9 Lymph # (Auto) 0.6 L [place] # (Auto) 0.4 Eos # (Auto) 0.0 Baso # (Auto) 0.0 WBC Differential . Differential Comment . Sodium 144 Potassium 4.0 Chloride 110 H Carbon Dioxide 24.7 Anion Gap 9 BUN 23 H Creatinine 0.81 Estimated GFR 70 L POC Glucose 148 H Random Glucose 244 H D Calcium 7.0 L* Prot Corrected Calcium 8.7 Magnesium 1.9 Total Protein 4.1 L D MTS Gel Crossmatch 08/26/18 08/26/18 08/25/18 07:34 01:15 17:45 CBC w Diff WBC RBC Hgb 7.9 L 7.8 L Hct 23.4 L 23.2 L MCV MCH MCHC RDW Plt Count MPV Neut % (Auto) Lymph % (Auto) [place] % (Auto) Eos % (Auto) Baso % (Auto) Neut # (Auto) Lymph # (Auto) [place] # (Auto) Eos # (Auto) Baso # (Auto) WBC Differential Differential Comment Sodium Potassium Chloride Carbon Dioxide Anion Gap BUN Creatinine Estimated GFR POC Glucose 217 H Random Glucose Calcium Prot Corrected Calcium Magnesium Total Protein MTS Gel Crossmatch 08/25/18 08/24/18 16:51 07:50 CBC w Diff WBC RBC Hgb Hct MCV MCH MCHC RDW Plt Count MPV Neut % (Auto) Lymph % (Auto) [place] % (Auto) Eos % (Auto) Baso % (Auto) Neut # (Auto) Lymph # (Auto) [place] # (Auto) Eos # (Auto) Baso # (Auto) WBC Differential Differential Comment Sodium Potassium Chloride Carbon Dioxide Anion Gap BUN Creatinine Estimated GFR POC Glucose 132 H Random Glucose Calcium Prot Corrected Calcium Magnesium Total Protein MTS Gel Crossmatch See Detail - Impressions ITS Impressions Head CT 08/24/18 00:00 CONCLUSION: 1. Negative CT Head non contrast. . Abdomen/Pelvis CT 08/24/18 07:57 CONCLUSION: 1. 5 cm soft tissue attenuating mass identified within the lumen of the cecum at the ileocecal valve. This could represent a bolus of stool, however, given the patient's clinical presentation a mass in this location should be further evaluated with colonoscopy. 2. No evidence of inflammatory process within the abdomen or pelvis or evidence of adenopathy. GI Bleed Scan Nuclear Medicine 08/25/18 16:15 CONCLUSION: Positive GI bleeding scan with hemorrhage in the right quadrant believed to be in the proximal transverse colon. Discharge Plan - Discharge Disposition Patient Disposition: /Home Health Service - Discharge Condition Condition: Stable - Physicians Team Primary Care Provider: NON STAFF,PROVIDER Attending Provider: Tee Levi Other Providers: Noel Mendez MD
--- NOTE | 2018-08-26 16:32 | P.PN ---
Subjective Interval history: Nursing denies any acute changes overnight. Patient is good. Denies any further bloody stools Physical Exam Vital signs: Vital Signs 08/25/18 16:40 08/25/18 20:00 08/25/18 20:55 Temperature 98.9 F Pulse Rate 88 111 H 111 H Respiratory Rate 16 18 Blood Pressure 131/63 120/73 Pulse Oximetry 98 95 08/25/18 21:07 08/25/18 21:32 08/25/18 22:25 Temperature 96.3 F L 98.2 F 98.4 F Pulse Rate 105 H 100 H 100 H Respiratory Rate 16 16 16 Blood Pressure 116/59 L 121/58 L 131/60 Pulse Oximetry 99 99 98 08/25/18 23:23 08/26/18 00:00 08/26/18 04:00 Temperature 97.8 F 97.8 F 97.4 F L Pulse Rate 88 104 H 103 H Respiratory Rate 18 18 18 Blood Pressure 113/56 L 113/56 L 133/66 Pulse Oximetry 96 96 96 08/26/18 04:41 08/26/18 04:59 08/26/18 07:30 Temperature 97.0 F L 97.8 F 97.9 F Pulse Rate 111 H 103 H 96 H Respiratory Rate 18 16 16 Blood Pressure 105/59 L 122/60 120/65 Pulse Oximetry 98 98 98 08/26/18 08:00 08/26/18 12:00 08/26/18 14:24 Temperature 97.9 F 98.3 F Pulse Rate 101 H 95 H 86 Respiratory Rate 16 16 Blood Pressure 120/65 128/58 L Pulse Oximetry 98 97 Intake & Output 08/25/18 08/26/18 08/26/18 18:59 06:59 18:59 Intake Total 2900 / 2900 2365 / 2365 400 / 400 Balance 2900 / 2900 2365 / 2365 400 / 400 Weight 78.7 kg Intake: IV 1950 / 1950 1000 / 1000 NS Inj 1,000 ML @ 100 mls/hr IV 1850 / 1850 1000 / 1000 .CONT .Q10H KIZZY Rx#:[id number] KCl 20 mEq Premix Inj 20 meq In 100 / 100 100 ml @ 50 mls/hr IV.SIG ONCE ONE Rx#:[id number] Oral 965 / 965 Anesthesia Amount 950 / 950 Other 400 / 400 Rbc As-3 Leukoreduced Unit 400 / 400 [id number] Intake (Blood Product) Amt 400 / 400 Rbc As-3 Leukoreduced Unit 0 / 0 [id number] Rbc As-3 Leukoreduced Unit 400 / 400 [id number] Other: # Voids 1 # Bowel Movements 5 4 Results - Labs CBC & Chem 7: 08/26/18 09:45 08/26/18 09:45 Laboratory Results - last 24 hr 08/24/18 08/25/18 08/25/18 07:50 16:51 17:45 CBC w Diff WBC RBC Hgb 7.8 L Hct 23.2 L MCV MCH MCHC RDW Plt Count MPV Neut % (Auto) Lymph % (Auto) [place] % (Auto) Eos % (Auto) Baso % (Auto) Neut # (Auto) Lymph # (Auto) [place] # (Auto) Eos # (Auto) Baso # (Auto) WBC Differential Differential Comment Sodium Potassium Chloride Carbon Dioxide Anion Gap BUN Creatinine Estimated GFR POC Glucose 132 H Random Glucose Calcium Prot Corrected Calcium Magnesium Total Protein MTS Gel Crossmatch See Detail 08/26/18 08/26/18 08/26/18 01:15 07:34 09:45 CBC w Diff WBC RBC Hgb 7.9 L Hct 23.4 L MCV MCH MCHC RDW Plt Count MPV Neut % (Auto) Lymph % (Auto) [place] % (Auto) Eos % (Auto) Baso % (Auto) Neut # (Auto) Lymph # (Auto) [place] # (Auto) Eos # (Auto) Baso # (Auto) WBC Differential Differential Comment Sodium 144 Potassium 4.0 Chloride 110 H Carbon Dioxide 24.7 Anion Gap 9 BUN 23 H Creatinine 0.81 Estimated GFR 70 L POC Glucose 217 H Random Glucose 244 H D Calcium 7.0 L* Prot Corrected Calcium 8.7 Magnesium 1.9 Total Protein 4.1 L D MTS Gel Crossmatch 08/26/18 08/26/18 09:45 14:59 CBC w Diff Auto diff final WBC 4.9 RBC 2.35 L Hgb 7.6 L Hct 22.5 L MCV 95.9 MCH 32.5 MCHC 33.9 RDW 12.5 Plt Count 149 L MPV 7.9 Neut % (Auto) 79.3 H Lymph % (Auto) 12.4 [place] % (Auto) 7.3 Eos % (Auto) 0.6 Baso % (Auto) 0.4 Neut # (Auto) 3.9 Lymph # (Auto) 0.6 L [place] # (Auto) 0.4 Eos # (Auto) 0.0 Baso # (Auto) 0.0 WBC Differential . Differential Comment . Sodium Potassium Chloride Carbon Dioxide Anion Gap BUN Creatinine Estimated GFR POC Glucose 148 H Random Glucose Calcium Prot Corrected Calcium Magnesium Total Protein MTS Gel Crossmatch - Imaging Impressions GI Bleed Scan Nuclear Medicine 08/25/18 16:15 CONCLUSION: Positive GI bleeding scan with hemorrhage in the right quadrant believed to be in the proximal transverse colon. - Procedures Colonoscopy Assessment and Plan - Plan 72-year-old female admitted with syncope secondary to dizziness secondary to symptomatic anemia secondary to GI bleed. Suffered a laceration of her right eyebrow due to syncope, sutured in the emergency department. Was noted to have a rapid drop in hemoglobin while inpatient, underwent colonoscopy which showed severe diverticulosis with no active bleeding, bleeding scan was positive for findings suggestive of bleeding in the transverse colon. Syncope No recurrence, likely secondary to underlying GI bleed - echo unremarkable GI bleed Likely diverticular bleed, colonoscopy 08/25 showing severe diverticulosis as well as some hemorrhoids, no active source of bleeding found Bleeding scan from 08/25 showed positive findings and transverse colon No clinical deterioration at this time - monitor h/h in AM 2. Hypertension -Normotensive at this time, monitor 3. Dyslipidemia -Resume home simvastatin 4. Rheumatoid arthritis Refrain from NSAIDs SCDs for now, avoid anticoagulants due to bleeding risk
--- NOTE | 2018-08-26 16:38 | P.PNGI ---
Subjective Interval history: Still passing BRBPR. No pain. Tolerating liquids Physical Exam Vital signs: Vital Signs 08/25/18 16:40 08/25/18 20:00 08/25/18 20:55 Temperature 98.9 F Pulse Rate 88 111 H 111 H Respiratory Rate 16 18 Blood Pressure 131/63 120/73 Pulse Oximetry 98 95 08/25/18 21:07 08/25/18 21:32 08/25/18 22:25 Temperature 96.3 F L 98.2 F 98.4 F Pulse Rate 105 H 100 H 100 H Respiratory Rate 16 16 16 Blood Pressure 116/59 L 121/58 L 131/60 Pulse Oximetry 99 99 98 08/25/18 23:23 08/26/18 00:00 08/26/18 04:00 Temperature 97.8 F 97.8 F 97.4 F L Pulse Rate 88 104 H 103 H Respiratory Rate 18 18 18 Blood Pressure 113/56 L 113/56 L 133/66 Pulse Oximetry 96 96 96 08/26/18 04:41 08/26/18 04:59 08/26/18 07:30 Temperature 97.0 F L 97.8 F 97.9 F Pulse Rate 111 H 103 H 96 H Respiratory Rate 18 16 16 Blood Pressure 105/59 L 122/60 120/65 Pulse Oximetry 98 98 98 08/26/18 08:00 08/26/18 12:00 08/26/18 14:24 Temperature 97.9 F 98.3 F Pulse Rate 101 H 95 H 86 Respiratory Rate 16 16 Blood Pressure 120/65 128/58 L Pulse Oximetry 98 97 Intake & Output 08/25/18 08/26/18 08/26/18 18:59 06:59 18:59 Intake Total 2900 / 2900 2365 / 2365 1400 / 1400 Balance 2900 / 2900 2365 / 2365 1400 / 1400 Weight 78.7 kg Intake: IV 1950 / 1950 1000 / 1000 1000 / 1000 NS Inj 1,000 ML @ 100 mls/hr IV 1850 / 1850 1000 / 1000 1000 / 1000 .CONT .Q10H KIZZY Rx#:[id number] KCl 20 mEq Premix Inj 20 meq In 100 / 100 100 ml @ 50 mls/hr IV.SIG ONCE ONE Rx#:[id number] Oral 965 / 965 Anesthesia Amount 950 / 950 Other 400 / 400 Rbc As-3 Leukoreduced Unit 400 / 400 [id number] Intake (Blood Product) Amt 400 / 400 Rbc As-3 Leukoreduced Unit 0 / 0 [id number] Rbc As-3 Leukoreduced Unit 400 / 400 [id number] Other: # Voids 1 # Bowel Movements 5 4 - Constitutional no acute distress - Routine HEENT Exam Head: Present: normocephalic Eye: Present: EOMI ENT: Present: mucous membranes moist - Routine Respiratory Exam Present: CTA bilaterally - Routine Cardiovascular Exam Present: RRR - Routine Abdominal Exam Present: soft, normoactive bowel sounds Results - Labs CBC & Chem 7: 08/26/18 09:45 08/26/18 09:45 Laboratory Results - last 24 hr 08/24/18 08/25/18 08/25/18 07:50 16:51 17:45 CBC w Diff WBC RBC Hgb 7.8 L Hct 23.2 L MCV MCH MCHC RDW Plt Count MPV Neut % (Auto) Lymph % (Auto) [place] % (Auto) Eos % (Auto) Baso % (Auto) Neut # (Auto) Lymph # (Auto) [place] # (Auto) Eos # (Auto) Baso # (Auto) WBC Differential Differential Comment Sodium Potassium Chloride Carbon Dioxide Anion Gap BUN Creatinine Estimated GFR POC Glucose 132 H Random Glucose Calcium Prot Corrected Calcium Magnesium Total Protein MTS Gel Crossmatch See Detail 08/26/18 08/26/18 08/26/18 01:15 07:34 09:45 CBC w Diff WBC RBC Hgb 7.9 L Hct 23.4 L MCV MCH MCHC RDW Plt Count MPV Neut % (Auto) Lymph % (Auto) [place] % (Auto) Eos % (Auto) Baso % (Auto) Neut # (Auto) Lymph # (Auto) [place] # (Auto) Eos # (Auto) Baso # (Auto) WBC Differential Differential Comment Sodium 144 Potassium 4.0 Chloride 110 H Carbon Dioxide 24.7 Anion Gap 9 BUN 23 H Creatinine 0.81 Estimated GFR 70 L POC Glucose 217 H Random Glucose 244 H D Calcium 7.0 L* Prot Corrected Calcium 8.7 Magnesium 1.9 Total Protein 4.1 L D MTS Gel Crossmatch 08/26/18 08/26/18 09:45 14:59 CBC w Diff Auto diff final WBC 4.9 RBC 2.35 L Hgb 7.6 L Hct 22.5 L MCV 95.9 MCH 32.5 MCHC 33.9 RDW 12.5 Plt Count 149 L MPV 7.9 Neut % (Auto) 79.3 H Lymph % (Auto) 12.4 [place] % (Auto) 7.3 Eos % (Auto) 0.6 Baso % (Auto) 0.4 Neut # (Auto) 3.9 Lymph # (Auto) 0.6 L [place] # (Auto) 0.4 Eos # (Auto) 0.0 Baso # (Auto) 0.0 WBC Differential . Differential Comment . Sodium Potassium Chloride Carbon Dioxide Anion Gap BUN Creatinine Estimated GFR POC Glucose 148 H Random Glucose Calcium Prot Corrected Calcium Magnesium Total Protein MTS Gel Crossmatch - Imaging Impressions GI Bleed Scan Nuclear Medicine 08/25/18 16:15 CONCLUSION: Positive GI bleeding scan with hemorrhage in the right quadrant believed to be in the proximal transverse colon. - Procedures Colonoscopy Assessment and Plan - Plan Seen and examined, still passing BRBPR. Bleeding scan +ve for bleeding in the R colon. Suspect diverticulosis. Transfused 2 units of PRBC yesterday. Will transfuse 2 units PRBC today. Clear liquid diet. Repeat Colonoscopy tomorrow. Discussed with Dr Sousa.
[2018-08-26] MEDS ORDERED: Magnesium Citrate Liq 300 ML Bottle PO ONE ×2 (17:00→19:00)
[2018-08-26] MEDS: Latanoprost 0.005% Opth Drops 2.5 ML Bottle EACH EYE SCH (21:07)
[2018-08-27] MEDS: Sod Chloride 0.9% Inj 1,000 ML IV.CONT SCH ×2 (01:58→17:54)
[2018-08-27 05:36] LABS: Hematocrit 28.1 % (35.0-46.0); Hemoglobin 9.6 gm/dL (11.6-15.3)
[2018-08-27] MEDS: Pantoprazole Inj 40 MG Vial IV.PUSH SCH ×2 (09:50→21:43)
[2018-08-27] MEDS: Calcium Carbonate 500 MG Tablet PO SCH ×2 (09:51→20:41)
--- NOTE | 2018-08-27 14:39 | P.PN ---
Subjective Interval history: Nursing reports the patient did have further bloody bowel movements yesterday evening. Patient is now back from repeat colonoscopy this morning. Says she does have some mild abdominal tenderness. No nausea or vomiting. Physical Exam Vital signs: Vital Signs 08/26/18 16:00 08/26/18 18:33 08/26/18 18:40 Temperature 98.3 F 98.9 F Pulse Rate 96 H 94 H 92 H Respiratory Rate 16 16 17 Blood Pressure 115/56 L 122/86 112/68 Pulse Oximetry 96 97 08/26/18 19:20 08/26/18 19:35 08/26/18 19:50 Temperature 97.7 F 98.1 F 98.0 F Pulse Rate 104 H 114 H 108 H Respiratory Rate 17 18 18 Blood Pressure 113/64 108/68 118/74 Pulse Oximetry 98 97 08/26/18 20:00 08/26/18 20:05 08/26/18 20:35 Temperature 98.5 F 98.2 F 98.1 F Pulse Rate 117 H 95 H 88 Respiratory Rate 16 20 18 Blood Pressure 108/68 120/71 111/64 Pulse Oximetry 97 97 94 L 08/26/18 21:05 08/26/18 22:03 08/26/18 22:20 Temperature 98.0 F 97.2 F L 98.0 F Pulse Rate 90 90 85 Respiratory Rate 18 18 20 Blood Pressure 118/76 109/62 120/75 Pulse Oximetry 94 L 98 97 08/26/18 22:35 08/26/18 22:50 08/26/18 23:05 Temperature 98.1 F 98.1 F 98.2 F Pulse Rate 84 85 85 Respiratory Rate 18 18 18 Blood Pressure 122/74 121/72 134/78 Pulse Oximetry 97 97 99 08/26/18 23:35 08/27/18 00:00 08/27/18 00:05 Temperature 98.0 F 96.8 F L 98.0 F Pulse Rate 90 85 85 Respiratory Rate 20 18 18 Blood Pressure 127/75 127/75 148/70 H Pulse Oximetry 99 100 08/27/18 01:05 08/27/18 04:00 08/27/18 04:55 Temperature 98.2 F 97.5 F L Pulse Rate 82 89 80 Respiratory Rate 18 18 Blood Pressure 117/63 138/63 Pulse Oximetry 98 99 08/27/18 08:00 08/27/18 13:01 08/27/18 13:29 Temperature 98 F 98.3 F Pulse Rate 70 74 76 Respiratory Rate 15 16 16 Blood Pressure 147/87 H 97/52 L 112/66 Pulse Oximetry 99 95 99 Intake & Output 08/26/18 08/27/18 08/27/18 18:59 06:59 18:59 Intake Total 2119 2355 / 2355 440 / 440 Balance 2119 2355 / 2355 440 / 440 Weight 82.1 kg Intake: IV 1000 / 1000 1000 / 1000 NS Inj 1,000 ML @ 100 mls/hr IV 1000 / 1000 1000 / 1000 .CONT .Q10H KIZZY Rx#:[id number] Oral 720 / 720 480 / 480 240 / 240 Anesthesia Amount 200 / 200 Other 400 / 400 75 / 75 Rbc As-3 Leukoreduced Unit 50 / 50 [id number] Rbc As-3 Leukoreduced Unit 25 / 25 [id number] Rbc As-3 Leukoreduced Unit 400 / 400 [id number] Intake (Blood Product) Amt 0 / 0 800 / 800 Rbc As-3 Leukoreduced Unit 400 / 400 [id number] Rbc As-3 Leukoreduced Unit 0 / 0 400 / 400 [id number] Other: Other Intake Source Rbc As-3 Leukoreduced Unit Saline Solution [id number] Rbc As-3 Leukoreduced Unit Saline Solution [id number] # Voids 3 Date of Last Bowel Movement 08/26/18 08/27/18 # Bowel Movements 3 10 Narrative: Sitting up in bed, awake and alert, no acute distress Unlabored breathing Abdomen soft, minimally tender to palpation diffusely, Nondistended Results - Labs CBC & Chem 7: 08/27/18 05:15 08/26/18 09:45 Laboratory Results - last 24 hr 08/24/18 08/26/18 08/26/18 07:50 14:59 16:34 Hgb Hct POC Glucose 148 H MTS Gel Crossmatch See Detail See Detail 08/26/18 08/27/18 08/27/18 18:58 00:35 05:15 Hgb 9.6 L D Hct 28.1 L POC Glucose 169 H 171 H MTS Gel Crossmatch 08/27/18 05:44 Hgb Hct POC Glucose 143 H MTS Gel Crossmatch - Procedures Colonoscopy Assessment and Plan - Plan 72-year-old female admitted with syncope secondary to dizziness secondary to symptomatic anemia secondary to GI bleed. Suffered a laceration of her right eyebrow due to syncope, sutured in the emergency department. Was noted to have a rapid drop in hemoglobin while inpatient, underwent colonoscopy which showed severe diverticulosis with no active bleeding, bleeding scan was positive for findings suggestive of bleeding in the transverse colon. Syncope No recurrence, likely secondary to underlying GI bleed - echo unremarkable GI bleed Likely diverticular bleed, colonoscopy 08/25 showing severe diverticulosis as well as some hemorrhoids, no active source of bleeding found Bleeding scan from 08/25 showed positive findings and transverse colon Repeat colonoscopy on 08/27 showing some blood in the colon but no active sources of bleeding We will repeat CBC in a.m., and if patient does experience further bleeding will consult interventional radiology for possible embolization 2. Hypertension -Resume home blood pressure medications once pressures elevate 3. Dyslipidemia -home simvastatin 4. Rheumatoid arthritis Refrain from NSAIDs SCDs for now, avoid anticoagulants due to bleeding risk
[2018-08-27] MEDS: Latanoprost 0.005% Opth Drops 2.5 ML Bottle EACH EYE SCH (20:41)
[2018-08-28] MEDS ORDERED: Sodium Chlor 0.9% Inj 500 ML IV.SIG ONE
[2018-08-28 00:48] LABS: Hemoglobin 6.5 gm/dL (11.6-15.3)
[2018-08-28 00:50] LABS: Hematocrit 18.8 % (35.0-46.0)
[2018-08-28] MEDS ORDERED: Sodium Chlor 0.9% Inj 250 ML IV.SIG SCH (01:00)
[2018-08-28] MEDS: Pantoprazole Inj 40 MG Vial IV.PUSH SCH ×2 (09:38→23:35)
[2018-08-28] MEDS: Calcium Carbonate 500 MG Tablet PO SCH ×2 (09:38→20:10)
--- NOTE | 2018-08-28 09:44 | P.PN ---
Subjective Interval history: Nursing reports the patient still had bloody bowel movements overnight. Patient reports that she had "passed out" about 2 times last night where she was hard to wake up. She says her memory is vague otherwise denied. Denies any outright abdominal pain. At this time she is awake and receiving a blood transfusion. Her hemoglobin had dropped to 6.5 this morning when it was checked. Physical Exam Vital signs: Vital Signs 08/27/18 13:01 08/27/18 13:29 08/27/18 16:00 Temperature 98.3 F 98.2 F Pulse Rate 74 76 78 Respiratory Rate 16 16 16 Blood Pressure 97/52 L 112/66 127/61 Pulse Oximetry 95 99 98 08/27/18 20:00 08/28/18 00:00 08/28/18 00:51 Temperature 96.8 F L 97.3 F L Pulse Rate 101 H 114 H Respiratory Rate 20 20 Blood Pressure 148/73 H 82/50 L 106/48 L Pulse Oximetry 95 95 08/28/18 01:45 08/28/18 03:50 08/28/18 04:00 Temperature 97.8 F 97.8 F Pulse Rate 89 89 Respiratory Rate 20 20 Blood Pressure 82/46 L 111/60 111/60 Pulse Oximetry 100 100 08/28/18 04:08 08/28/18 05:07 08/28/18 06:13 Temperature 98 F 97.3 F L 97.5 F L Pulse Rate 98 H 103 H 104 H Respiratory Rate 18 18 18 Blood Pressure 108/58 L 117/56 L 116/59 L Pulse Oximetry 100 100 08/28/18 07:00 08/28/18 07:36 08/28/18 07:47 Temperature 97.7 F 97.9 F 98.0 F Pulse Rate 101 H 106 H 109 H Respiratory Rate 16 18 16 Blood Pressure 120/73 113/68 113/68 Pulse Oximetry 99 100 08/28/18 08:02 Temperature 97.7 F Pulse Rate 101 H Respiratory Rate 16 Blood Pressure 120/73 Pulse Oximetry 99 Intake & Output 08/27/18 08/28/18 08/28/18 18:59 06:59 18:59 Intake Total 1890 / 1890 620 / 620 400 / 400 Balance 189 / 1890 620 / 620 400 / 400 Weight 81.1 kg Intake: IV 1000 / 1000 500 / 500 NS Inj 1,000 ML @ 100 mls/hr IV 1000 / 1000 .CONT .Q10H KIZZY Rx#:[id number] NS Inj 500 ML @ Wide Open IV. 500 / 500 SIG BOLUS ONE Rx#:[id number] Oral 690 / 690 120 / 120 Anesthesia Amount 200 / 200 Intake (Blood Product) Amt 0 / 0 400 / 400 Rbc As-3 Leukoreduced Unit 0 / 0 [id number] Rbc As-3 Leukoreduced Unit 0 / 0 400 / 400 [id number] Other: # Voids 3 6 Date of Last Bowel Movement 08/27/18 # Bowel Movements 6 Narrative: Diffuse general pallor Awake and alert Clear lungs bilaterally Hrt sounds RRR, 2/6 ejection murmur Abdomen soft, minimally tender, ND receiving blood transfusion Results - Labs CBC & Chem 7: 08/29/18 06:21 08/26/18 09:45 Laboratory Results - last 24 hr 08/26/18 08/27/18 08/27/18 16:34 17:02 20:55 Hgb Hct POC Glucose 145 H 202 H Blood Type Antibody Screen MTS Gel Crossmatch See Detail 08/28/18 08/28/18 08/28/18 00:20 00:31 01:50 Hgb 6.5 L* D Hct 18.8 L* POC Glucose 228 H Blood Type A Positive Antibody Screen Negative MTS Gel Crossmatch See Detail 08/28/18 08/28/18 06:21 08:39 Hgb Hct POC Glucose 180 H 147 H Blood Type Antibody Screen MTS Gel Crossmatch - Procedures Colonoscopy Assessment and Plan - Plan 72-year-old female admitted with syncope secondary to dizziness secondary to symptomatic anemia secondary to GI bleed. Suffered a laceration of her right eyebrow due to syncope, sutured in the emergency department. Was noted to have a rapid drop in hemoglobin while inpatient, underwent colonoscopy which showed severe diverticulosis with no active bleeding, bleeding scan was positive for findings suggestive of bleeding in the transverse colon. Underwent repeat colonoscopy which again showed some blood in the colon but no active sources of bleeding. Patient's hemoglobin dropped overnight once again and became syncopal as well with drop in the blood pressure to the 80s, patient was transferred over to the main hospital for urgent angiogram procedure with general surgery consultation and closer monitoring. Hemodynamically stable at this time. Syncope No recurrence, likely secondary to underlying GI bleed - echo unremarkable GI bleed Likely diverticular bleed, colonoscopy x2 showing some residual blood with no active source of bleeding, bleeding scan positive in transverse colon GI following Currently receiving another blood transfusion, interventional radiology and general surgery have both been contacted and consulted, following the patient, who is at this time hemodynamically stable Hypertension -hold home bp meds in light of active bleeding Dyslipidemia -home simvastatin Rheumatoid arthritis Refrain from NSAIDs SCDs for now, avoid anticoagulants due to bleeding risk
[2018-08-28] MEDS ORDERED: fentaNYL Citrate Inj 250 MCG/5 ML Ampul ONE (13:24)
[2018-08-28] MEDS ORDERED: Lidocaine PF 1% Inj 30 ML Vial ONE (13:56)
--- NOTE | 2018-08-28 14:48 | P.RAD ---
Post Procedure Progress Note - Procedure Information Procedure Date: 08/28/18 Supervising Radiologist: Reyes Juarez MD Estimated blood loss (mL): 5 Anesthesia: Conscious Sedation - Plan of Activity Patient to Unit: Nursing Unit Patient Condition: Good Additional Comments: No active bleeding at this time. Site of active bleeding on prior scans is in the proximal transverse colon at the first genu beyond the hepatic flexure. See PACS Report for procedural detail/treatment.
[2018-08-28 16:55] LABS: Hemoglobin 8.2 gm/dL (11.6-15.3)
[2018-08-28] MEDS: Latanoprost 0.005% Opth Drops 2.5 ML Bottle EACH EYE SCH (20:14)
--- NOTE | 2018-08-28 22:03 | MB ---
cc: Alireza Oneal MD,Tee Lopez MD DATE: 08/28/2018 CHIEF COMPLAINT: GI bleed, anemia of blood loss. SOLID WASTE ANALYST: Tee Levi MD HISTORY OF PRESENT ILLNESS: The patient is a 72-year-old female who was initially admitted on 08/24/2018 due to a GI bleed. The patient noted with several medical issues and presented after feeling dizzy and having multiple bloody bowel movements while at home. The patient's initial hemoglobin was 12.8 and the patient had further workup including a CT scan showing, on my review, a concern for a bleed at the proximal transverse colon near the hepatic flexure. She had colonoscopies x2 without ability to visualize bleeding due to significant blood in the colon and had a bleeding scan which showed a concerning area for proximal transverse colon with a bleeding site. She was doing relatively well and has had approximately 6 transfusions throughout her hospital stay. Recently, last night, the patient had multiple bloody bowel movements and a syncopal episode. She was noted to have hypotension with a systolic blood pressure in the 80s. She was given 2 units. The patient's hemoglobin was noted to be 9.6 and went to 6.5. A repeat hemoglobin is pending following transfusion. The patient is noted to be currently hemodynamically normal without current tachycardia. She states being currently alert and awake and a stat transfer to [facility] for further evaluation and interventional radiology with angiography is pending. The patient states she has had a history of diverticulosis without previous bleeding episodes. She has had several colonoscopies in the past, again noting a diverticulosis without further abnormality. The patient further noted to have a right eye laceration following dizziness, syncope and fall prior to admission which has subsequently been repaired as well. PAST MEDICAL HISTORY: Hypertension, rheumatoid arthritis, diabetes, dyslipidemia. PAST SURGICAL HISTORY: The patient has had no surgeries. SOCIAL HISTORY: Denies smoking, ETOH or IVDA. ALLERGIES: HANNA INHIBITORS. MEDICATIONS: See EMR. FAMILY HISTORY: Denies coronary artery disease or diabetes. REVIEW OF SYSTEMS: NEUROLOGIC: Complains of a syncopal episode. HEENT: Denies ear pain. Complains of right eye pain. NECK: Denies swelling or pain. LUNGS: Denies cough or wheeze. HEART: Denies palpitations. Complains of tachycardia. ABDOMEN: Denies nausea or vomiting. GENITOURINARY: Denies dysuria or hematuria. ENDOCRINE: Denies polyuria or polydipsia. INTEGUMENT: Denies any mass or lesions. PHYSICAL EXAMINATION: VITAL SIGNS: Temperature 98.1, pulse 89, respirations 16, blood pressure 130/62, saturation 95%. HEENT: Pupils equal, round, reactive. Right eye with a healing laceration with repair with sutures. NECK: Supple. Trachea midline. LUNGS: Bilateral expansion, clear. HEART: S1, S2. Regular. ABDOMEN: Soft, nontender, nondistended. EXTREMITIES: Warm and well perfused. NEUROLOGIC: GCS of 15. 5/5 motor in all extremities. INTEGUMENT: No obvious masses or lesions. PSYCHIATRIC: Appropriate mood, appropriate judgment. LABORATORY AND DIAGNOSTIC DATA: WBC 4.9, hemoglobin 6.5, hematocrit 18.8, platelets 149. INR 1.1. Sodium 144, potassium 4, chloride 110, BUN 23, creatinine 0.8, glucose 148, 8.7. RADIOLOGIC WORKUP AND IMAGING: Reviewed by myself showing CT abdomen and pelvis with soft tissue mass in the lumen of the cecum concerning for a stool bolus, no adenopathy. On discussion with Dr. Juarez, evidence of bleeding from the proximal transverse colon on CT done on 08/24/2018. Bleeding scan showing bleeding from the proximal transverse colon near the hepatic flexure. Angiography pending. ASSESSMENT: The patient is a 72-year-old female who presented with an acute gastrointestinal bleed, anemia of blood loss, syncope and several medical issues. PLAN: After a full workup, the patient with the above-noted issues. At this point, the patient appears to have had an acute episode of bleed with initial hemodynamic instability and anemia of blood loss. The patient has subsequently been transfused and has had improvement in her hemodynamic parameters. Repeat hemoglobin is pending. She is planned for interventional radiology intervention including angiography for possible identification of bleeding. However, clinically, the patient does appear to have currently improved. Surgery will continue to follow closely. Monitor hemoglobin, abdominal exam and further bleeding per rectum. Continue resuscitation as needed. Continue to hold any DVT prophylaxis. Continue to monitor her coags and transfuse as necessary. If the patient has another bleeding episode, we will consider operative intervention. Would likely need possibly a right hemicolectomy versus possible repeat interventional radiology for embolization. Discussed with the patient in detail, who states her understanding and agrees. MD ALAN Donis/marcos/ , 09:03 PM , 09:17 PM
[2018-08-29] MEDS: Acetaminophen 325 MG Tablet PO PRN ×2 (00:19→12:02)
[2018-08-29 06:52] LABS: Hematocrit 21.9 % (35.0-46.0); Hemoglobin 7.8 gm/dL (11.6-15.3)
--- NOTE | 2018-08-29 07:23 | ECG ---
Date Performed: 08/27/2018 Time Performed: 14:02:02 PTAGE: 72 years EKG: Sinus rhythm LOW QRS VOLTAGE IN PRECORDIAL LEADS INFERIOR MYOCARDIAL INFARCTION ANTEROSEPTAL MYOCARDIAL INFARCTIO N ABNORMAL ECG PREVIOUS TRACING : 08/24/2018 10.17 Since the previous tracing, no significant change noted DOCTOR: Edison Quinn Interpretating Date/Time 08/29/2018 07:23:36
--- NOTE | 2018-08-29 09:07 | IR ---
EXAM DATE: 08/28/2018 4:01 PM EST AGE/SEX: 72 years / Female INDICATIONS: Patient with history of GI bleed in need of abdominal angiogram. CLINICAL DATA: This is the patient's initial encounter. Patient reports that signs and symptoms have been present for 4 - 6 days and indicates a pain score of 0/10. MEDICAL/SURGICAL HISTORY: Hypertension. Hypercholesterolemia. Diabetes. Vertigo, Rheumatoid arthritis None. COMPARISON: No prior exams available for comparison. FLUORO TIME (min): 9.9 IMAGE SERIES: 10 ACCESS SITE: Right femoral artery SEDATION TIME (min): 60 CONTRAST (cc): 200 Visipaque (iodixanol) MEDICATION(S): 1mg midazolam (Versed) IV ; 50mcg fentanyl (Sublimaze) IV ; ; ; DEVICE(S): Right common femoral artery Syvek pad ; ; ; ; ; ; . . PROCEDURE : 1. Ultrasound-guided puncture of the access site. 2. Conscious sedation with continuous EKG and Oximetry monitoring. 3. Selective catheter placement in the celiac artery with selective angiography 4. Selective catheter placement in the SMA with selective angiography 5. Subselective catheter placement in 2 separate right colic branches of the SMA with subselective a ngiography 6. Selective catheter placement in the ALEXEY with selective angiography The risks, benefits and alternatives to the procedure were explained and verbal and written consent w as obtained. The site was prepped in sterile fashion. Full sterile technique was used, including ca p, mask, sterile gloves and gown and a large sterile sheet. Hand hygiene and 2% chlorhexidine and/or betadine/alcohol prep was utilized per protocol for cutaneous antisepsis. Sterile gel and sterile p robe cover were utilized for ultrasound guidance. The skin and subcutaneous tissues were infiltrated with local anesthetic solution. With ultrasound and fluoroscopic guidance the selected artery was punctured and a vascular sheath was placed. 4 Danish Sos 0 catheter was then used to select the celiac artery and angiography was perfor med. This demonstrated standard celiac anatomy without contrast extravasation. Catheter was then repo sitioned in the SMA and angiography was performed. This demonstrated no evidence for contrast extrava sation or abnormal enhancement. Given findings on prior exams, 2 separate right colic branches were s elected and subselected angiography was performed. Again, no contrast extravasation or abnormal enhan cement was demonstrated. Catheter was then repositioned into the ALEXEY and angiography was performed. A gain, no abnormal enhancement or contrast extravasation was noted. Wires and catheters were then elan dana. The puncture site was closed with manual pressure and hemostasis was obtained. The patient tolerated the procedure well and there were no complications. Conscious sedation was performed with the prescribed dosages and duration as above in the presence of an independent trained radiology nurse to assist in the monitoring of the patient. EKG and oximetry remained stable throughout the procedure. CONCLUSION: 1. Unremarkable 3 vessel mesenteric angiography including subselective right colic angiograms. No ev idence for active hemorrhage at this time. Electronically signed by: Reyes Juarez MD 08/29/2018 9:06 AM EST
[2018-08-29] MEDS: Calcium Carbonate 500 MG Tablet PO SCH ×2 (09:50→21:38)
[2018-08-29] MEDS: Pantoprazole Inj 40 MG Vial IV.PUSH SCH ×2 (09:50→21:38)
--- NOTE | 2018-08-29 10:03 | P.PNGS ---
Subjective Interval history: Abdominal pain resolved; only had small amount of darker stool pass per rectum last night Quite upset--- thinks her identify was stolen yesterday which has increased her anxiety Her is present at the bedside Physical Exam Vital signs: Vital Signs 08/28/18 10:07 08/28/18 10:08 08/28/18 12:00 Temperature 98.9 F 98.9 F Pulse Rate 95 H 95 H 86 Respiratory Rate 16 16 18 Blood Pressure 120/68 120/68 135/64 Pulse Oximetry 100 100 98 08/28/18 15:08 08/28/18 15:15 08/28/18 15:30 Temperature 98.1 F Pulse Rate 89 85 79 Respiratory Rate 16 16 16 Blood Pressure 130/62 128/60 117/59 L Pulse Oximetry 95 94 L 94 L 08/28/18 15:45 08/28/18 16:00 08/28/18 16:15 Temperature 98.6 F Pulse Rate 77 79 87 Respiratory Rate 16 18 Blood Pressure 126/60 125/66 137/67 Pulse Oximetry 95 96 08/28/18 16:45 08/28/18 17:45 08/28/18 19:00 Temperature Pulse Rate 79 77 84 Respiratory Rate 18 18 Blood Pressure 106/69 138/62 Pulse Oximetry 08/28/18 20:00 08/28/18 23:31 08/29/18 00:00 Temperature 99.2 F 98.8 F Pulse Rate 87 91 H 84 Respiratory Rate 18 18 Blood Pressure 130/36 L 121/62 Pulse Oximetry 96 98 08/29/18 04:00 08/29/18 04:52 Temperature 98.5 F Pulse Rate 83 79 Respiratory Rate 18 Blood Pressure 123/67 Pulse Oximetry 99 Intake & Output 08/28/18 08/29/18 08/29/18 18:59 06:59 18:59 Intake Total 1688 / 1688 480 / 480 Output Total 400 / 400 Balance 1688 / 1688 80 / 80 Weight 81.1 kg Intake: Oral 838 / 838 480 / 480 Other 50 / 50 Rbc As-3 Leukoreduced Unit 50 / 50 [id number] Intake (Blood Product) Amt 800 / 800 Rbc As-3 Leukoreduced Unit 400 / 400 [id number] Rbc As-3 Leukoreduced Unit 400 / 400 [id number] Output: Urine 400 / 400 Other: Other Intake Source Rbc As-3 Leukoreduced Unit Saline Solution [id number] # Voids 2 Date of Last Bowel Movement 08/29/18 # Bowel Movements 1 Narrative: Alert and awake Small laceration over RIGHT eyebrow that has been repaired Abd: soft; non tender; non distended Results - Labs 08/29/18 06:21 08/26/18 09:45 Laboratory Results - last 24 hr 08/28/18 08/28/18 08/28/18 01:50 11:45 15:08 Hgb Hct POC Glucose 123 H 128 H MTS Gel Crossmatch See Detail 08/28/18 08/28/18 08/28/18 16:22 18:39 20:09 Hgb 8.2 L Hct 23.0 L POC Glucose 123 H 200 H MTS Gel Crossmatch 08/28/18 08/29/18 08/29/18 23:34 04:56 06:21 Hgb 7.8 L Hct 21.9 L POC Glucose 158 H 159 H MTS Gel Crossmatch 08/29/18 07:59 Hgb Hct POC Glucose 172 H MTS Gel Crossmatch - Imaging Imaging: ITS Impressions Head CT 08/24/18 00:00 CONCLUSION: 1. Negative CT Head non contrast. . Abdomen/Pelvis CT 08/24/18 07:57 CONCLUSION: 1. 5 cm soft tissue attenuating mass identified within the lumen of the cecum at the ileocecal valve. This could represent a bolus of stool, however, given the patient's clinical presentation a mass in this location should be further evaluated with colonoscopy. 2. No evidence of inflammatory process within the abdomen or pelvis or evidence of adenopathy. GI Bleed Scan Nuclear Medicine 08/25/18 16:15 CONCLUSION: Positive GI bleeding scan with hemorrhage in the right quadrant believed to be in the proximal transverse colon. Abdominal Angiography 08/28/18 00:00 CONCLUSION: 1. Unremarkable 3 vessel mesenteric angiography including subselective right colic angiograms. No evidence for active hemorrhage at this time. Assessment and Plan - Assessment (1) Bright red rectal bleeding Code(s): K62.5 - Hemorrhage of anus and rectum Status: Acute Plan: 72 year old female with LGIB -S/p IR evaluation--- no active bleeding -Hmg 7.8 today; BP and HR stable -No further bright red blood -Diet per GI -If she starts bleeding again-- would likely benefit from IR evaluation first; if unsuccessful may need to discuss surgery -I talked with Case Management--- they will talk to her about the possibility of her identify being stolen and next steps - Plan I personally evaluated the patient in room 242. She was standing with PT and her was in the room. She c/o mild discomfort in the abdomen. She was tolerating a liquid diet. She had not had any BM since yesterday, it was dark maroon at that time. Presumed lower GI bleed, source not detected. Appears to have stopped. Plan : be available should she rebleed. She would like to avoid an urgent operation. The exam, history, and the medical decision-making described in the above note were completed with the assistance of the mid-level provider. I reviewed and agree with the findings presented. I attest that I had a [id number] encounter with the patient on the same day, and personally performed and documented my assessment and findings in the medical record.
--- NOTE | 2018-08-29 10:44 | P.PN ---
Subjective Interval history: Follow-up with LGI bleed August 29, 2018-patient seen and examined, she was evaluated by interventional radiology yesterday but no active bleed was seen. Patient had one bowel movement yesterday with spotting of blood but None this morning. Denies any shortness of breath, chest pain. Physical Exam Vital signs: Vital Signs 08/28/18 12:00 08/28/18 15:08 08/28/18 15:15 Temperature 98.1 F Pulse Rate 86 89 85 Respiratory Rate 18 16 16 Blood Pressure 135/64 130/62 128/60 Pulse Oximetry 98 95 94 L 08/28/18 15:30 08/28/18 15:45 08/28/18 16:00 Temperature 98.6 F Pulse Rate 79 77 79 Respiratory Rate 16 16 Blood Pressure 117/59 L 126/60 125/66 Pulse Oximetry 94 L 95 96 08/28/18 16:15 08/28/18 16:45 08/28/18 17:45 Temperature Pulse Rate 87 79 77 Respiratory Rate 18 18 18 Blood Pressure 137/67 106/69 138/62 Pulse Oximetry 08/28/18 19:00 08/28/18 20:00 08/28/18 23:31 Temperature 99.2 F 98.8 F Pulse Rate 84 87 91 H Respiratory Rate 18 18 Blood Pressure 130/36 L 121/62 Pulse Oximetry 96 98 08/29/18 00:00 08/29/18 04:00 08/29/18 04:52 Temperature 98.5 F Pulse Rate 84 83 79 Respiratory Rate 18 Blood Pressure 123/67 Pulse Oximetry 99 Intake & Output 08/28/18 08/29/18 08/29/18 18:59 06:59 18:59 Intake Total 1688 / 1688 480 / 480 Output Total 400 / 400 Balance 1688 / 1688 80 / 80 Weight 81.1 kg Intake: Oral 838 / 838 480 / 480 Other 50 / 50 Rbc As-3 Leukoreduced Unit 50 / 50 [id number] Intake (Blood Product) Amt 800 / 800 Rbc As-3 Leukoreduced Unit 400 / 400 [id number] Rbc As-3 Leukoreduced Unit 400 / 400 [id number] Output: Urine 400 / 400 Other: Other Intake Source Rbc As-3 Leukoreduced Unit Saline Solution [id number] # Voids 2 Date of Last Bowel Movement 08/29/18 # Bowel Movements 1 Narrative: GENERAL: NAD SKIN: Warm and dry. HEAD: Atraumatic. Normocephalic. EYES: Pupils equal and round. No scleral icterus. No injection or drainage. small laceration right eyelid repair ENT: No nasal bleeding or discharge. Mucous membranes pink and moist. NECK: Trachea midline. No JVD. CARDIOVASCULAR: Regular rate and rhythm. RESPIRATORY: No accessory muscle use. Clear to auscultation. Breath sounds equal bilaterally. GASTROINTESTINAL: Abdomen soft, non-tender, nondistended. Hepatic and splenic margins not palpable. MUSCULOSKELETAL: Extremities without clubbing, cyanosis, or edema. No obvious deformities. NEUROLOGICAL: Awake and alert. No obvious cranial nerve deficits. Motor grossly within normal limits. Five out of 5 muscle strength in the arms and legs. Normal speech. PSYCHIATRIC: Appropriate mood and affect; insight and judgment normal. Results - Labs CBC & Chem 7: 08/29/18 06:21 08/26/18 09:45 Laboratory Results - last 24 hr 08/28/18 08/28/18 08/28/18 11:45 15:08 16:22 Hgb 8.2 L Hct 23.0 L POC Glucose 123 H 128 H MTS Gel Crossmatch 08/28/18 08/28/18 08/28/18 18:39 20:09 23:34 Hgb Hct POC Glucose 123 H 200 H 158 H MTS Gel Crossmatch 08/29/18 08/29/18 08/29/18 04:56 06:21 07:59 Hgb 7.8 L Hct 21.9 L POC Glucose 159 H 172 H MTS Gel Crossmatch 08/29/18 10:32 Hgb Hct POC Glucose MTS Gel Crossmatch See Detail - Imaging Impressions Abdominal Angiography 08/28/18 00:00 CONCLUSION: 1. Unremarkable 3 vessel mesenteric angiography including subselective right colic angiograms. No evidence for active hemorrhage at this time. - Procedures Colonoscopy Assessment and Plan - Plan 72-year-old female with Syncope likely secondary to underlying GI bleed - echo unremarkable -PT consult to treat and eval GI bleed Likely diverticular bleed, colonoscopy x2 showing some residual blood with no active source of bleeding, bleeding scan positive in transverse colon GI following Patient evaluated by interventional radiology August 28, 2018, and no active bleed seen -Appreciate input from general surgery consulted for evaluation for possible hemicolectomy versus other, however recommend at this time medical management -We will transfuse 1 unit packed red blood cells today August 29, 2018 Hypertension -Resume home bp meds in light of active bleeding Dyslipidemia -home simvastatin Diabetes type 2 -Resume metformin and glyburide Rheumatoid arthritis Refrain from NSAIDs SCDs for now, avoid anticoagulants due to bleeding risk Transfer to [facility] Monitor CBC
[2018-08-29] MEDS ORDERED: Sodium Chlor 0.9% Inj 250 ML IV.SIG SCH (11:00)
[2018-08-29] MEDS ORDERED: Acetaminophen 325 MG Tablet PO PRN (11:00)
--- NOTE | 2018-08-29 15:02 | P.PNGI ---
Subjective Interval history: Patient sitting up in chair at bedside Awake alert, family visiting Patient reports BM last evening Denies any noted bleeding <Luisana Lucio - Last Filed: 08/29/18 14:53> Physical Exam Vital signs: Vital Signs 08/28/18 15:08 08/28/18 15:15 08/28/18 15:30 Temperature 98.1 F Pulse Rate 89 85 79 Respiratory Rate 16 16 16 Blood Pressure 130/62 128/60 117/59 L Pulse Oximetry 95 94 L 94 L 08/28/18 15:45 08/28/18 16:00 08/28/18 16:15 Temperature 98.6 F Pulse Rate 77 79 87 Respiratory Rate 16 18 Blood Pressure 126/60 125/66 137/67 Pulse Oximetry 95 96 08/28/18 16:45 08/28/18 17:45 08/28/18 19:00 Temperature Pulse Rate 79 77 84 Respiratory Rate 18 18 Blood Pressure 106/69 138/62 Pulse Oximetry 08/28/18 20:00 08/28/18 23:31 08/29/18 00:00 Temperature 99.2 F 98.8 F Pulse Rate 87 91 H 84 Respiratory Rate 18 18 Blood Pressure 130/36 L 121/62 Pulse Oximetry 96 98 08/29/18 04:00 08/29/18 04:52 08/29/18 12:38 Temperature 98.5 F 98.3 F Pulse Rate 83 79 81 Respiratory Rate 18 18 Blood Pressure 123/67 129/87 Pulse Oximetry 99 96 08/29/18 12:56 08/29/18 13:29 Temperature 98.5 F 99.7 F H Pulse Rate 80 Respiratory Rate 20 Blood Pressure 114/59 L Pulse Oximetry 97 Intake & Output 08/28/18 08/29/18 08/29/18 18:59 06:59 18:59 Intake Total 1688 / 1688 480 / 480 0 / 0 Output Total 400 / 400 Balance 1688 / 1688 80 / 80 0 / 0 Weight 81.1 kg Intake: Oral 838 / 838 480 / 480 Other 50 / 50 Rbc As-3 Leukoreduced Unit 50 / 50 [id number] Intake (Blood Product) Amt 800 / 800 0 / 0 Rbc As-3 Leukoreduced Unit 0 / 0 [id number] Rbc As-3 Leukoreduced Unit 400 / 400 [id number] Rbc As-3 Leukoreduced Unit 400 / 400 [id number] Output: Urine 400 / 400 Other: Other Intake Source Rbc As-3 Leukoreduced Unit Saline Solution [id number] # Voids 2 Date of Last Bowel Movement 08/29/18 08/28/18 # Bowel Movements 1 - Constitutional no acute distress, chronically ill appearing - Routine HEENT Exam Head: Present: normocephalic - Routine Respiratory Exam Present: CTA bilaterally - Routine Abdominal Exam Present: soft, normoactive bowel sounds. Absent: tenderness, guarding, firm - Routine Skin Exam Present: dry, warm - Routine Neurological Exam Present: alert - Routine Psychiatric Exam Present: normal affect, cooperative <Lucio,Luisana - Last Filed: 08/29/18 14:53> Vital signs: Vital Signs 08/28/18 16:15 08/28/18 16:45 08/28/18 17:45 Temperature Pulse Rate 87 79 77 Respiratory Rate 18 18 18 Blood Pressure 137/67 106/69 138/62 Pulse Oximetry 08/28/18 19:00 08/28/18 20:00 08/28/18 23:31 Temperature 99.2 F 98.8 F Pulse Rate 84 87 91 H Respiratory Rate 18 18 Blood Pressure 130/36 L 121/62 Pulse Oximetry 96 98 08/29/18 00:00 08/29/18 04:00 08/29/18 04:52 Temperature 98.5 F Pulse Rate 84 83 79 Respiratory Rate 18 Blood Pressure 123/67 Pulse Oximetry 99 08/29/18 08:00 08/29/18 12:00 08/29/18 12:38 Temperature 98.3 F 98.3 F 98.3 F Pulse Rate 88 81 81 Respiratory Rate 18 18 18 Blood Pressure 142/74 H 129/87 129/87 Pulse Oximetry 98 96 96 08/29/18 12:56 08/29/18 13:29 Temperature 98.5 F 99.7 F H Pulse Rate 80 Respiratory Rate 20 Blood Pressure 114/59 L Pulse Oximetry 97 Intake & Output 08/28/18 08/29/18 08/29/18 18:59 06:59 18:59 Intake Total 1688 / 1688 480 / 480 0 / 0 Output Total 400 / 400 Balance 1688 / 1688 80 / 80 0 / 0 Weight 81.1 kg Intake: Oral 838 / 838 480 / 480 Other 50 / 50 Rbc As-3 Leukoreduced Unit 50 / 50 [id number] Intake (Blood Product) Amt 800 / 800 0 / 0 Rbc As-3 Leukoreduced Unit 0 / 0 [id number] Rbc As-3 Leukoreduced Unit 400 / 400 [id number] Rbc As-3 Leukoreduced Unit 400 / 400 [id number] Output: Urine 400 / 400 Other: Other Intake Source Rbc As-3 Leukoreduced Unit Saline Solution [id number] # Voids 2 Date of Last Bowel Movement 08/29/18 08/28/18 # Bowel Movements 1 <Arjun Walker - Last Filed: 08/29/18 16:10> Results - Labs CBC & Chem 7: 08/29/18 06:21 08/26/18 09:45 Laboratory Results - last 24 hr 08/26/18 08/28/18 08/28/18 16:34 15:08 16:22 Hgb 8.2 L Hct 23.0 L POC Glucose 128 H MTS Gel Crossmatch See Detail Bld Prod Order Comment 08/28/18 08/28/18 08/28/18 18:39 20:09 23:34 Hgb Hct POC Glucose 123 H 200 H 158 H MTS Gel Crossmatch Bld Prod Order Comment 08/29/18 08/29/18 08/29/18 04:56 06:21 07:59 Hgb 7.8 L Hct 21.9 L POC Glucose 159 H 172 H MTS Gel Crossmatch Bld Prod Order Comment 08/29/18 08/29/18 10:32 12:10 Hgb Hct POC Glucose 183 H MTS Gel Crossmatch See Detail Bld Prod Order Comment - Imaging Impressions Abdominal Angiography 08/28/18 00:00 CONCLUSION: 1. Unremarkable 3 vessel mesenteric angiography including subselective right colic angiograms. No evidence for active hemorrhage at this time. - Procedures Colonoscopy <Luisana Lucio - Last Filed: 08/29/18 14:53> - Labs CBC & Chem 7: 08/29/18 06:21 08/26/18 09:45 Laboratory Results - last 24 hr 08/26/18 08/28/18 08/28/18 16:34 16:22 18:39 Hgb 8.2 L Hct 23.0 L POC Glucose 123 H MTS Gel Crossmatch See Detail Bld Prod Order Comment 08/28/18 08/28/18 08/29/18 20:09 23:34 04:56 Hgb Hct POC Glucose 200 H 158 H 159 H MTS Gel Crossmatch Bld Prod Order Comment 08/29/18 08/29/18 08/29/18 06:21 07:59 10:32 Hgb 7.8 L Hct 21.9 L POC Glucose 172 H MTS Gel Crossmatch See Detail Bld Prod Order Comment 08/29/18 12:10 Hgb Hct POC Glucose 183 H MTS Gel Crossmatch Bld Prod Order Comment - Imaging Impressions Abdominal Angiography 08/28/18 00:00 CONCLUSION: 1. Unremarkable 3 vessel mesenteric angiography including subselective right colic angiograms. No evidence for active hemorrhage at this time. <Arjun Walker - Last Filed: 08/29/18 16:10> Assessment and Plan - Plan 08/29/2018 GI bleed -Patient sitting up in bedside, states small bowel movement last evening. Denies any obvious bleeding. -08/25/2018 colonoscopy: Severe diverticulosis was noted in the sigmoid colon 2. Blood present throughout the colon. Terminal illeum blood free 3. Retroflexed views revealed internal hemorrhoids 4. Retroflexed views revealed small internal hemorrhoids 5. Revealed external hemorrhoids -08/28/2018 Abdominal Angiography: Unremarkable 3 vessel mesenteric angiography including subselective right colic angiograms. No evidence for active hemorrhage at this time. -(08/29) hemoglobin 7.8 hematocrit 21.9 Plan -Diabetic diet as tolerated -Monitor for bleeding -Transfuse if needed -Monitor hemoglobin and hematocrit -Zofran as needed for nausea -Continue PPI -Supportive care -Further recommendations to follow This patient was seen by myself and Dr. Walker and this note is written on his behalf - Attending Attestation Dr. Walker <Luisana Lucio - Last Filed: 08/29/18 14:53> - Attending Attestation Agree with the plan as above. IR findings noted. Likely intermittent diverticular bleeding. Will follow up with you. <Arjun Walker - Last Filed: 08/29/18 16:10>
[2018-08-29] MEDS: Latanoprost 0.005% Opth Drops 2.5 ML Bottle EACH EYE SCH (21:39)
[2018-08-30 07:00] LABS: Baso % (Auto) 0.4 % (0.0-2.0); Eos # (Auto) 0.2 th/mm3 (0.0-0.4); Hematocrit 27.6 % (35.0-46.0); Hemoglobin 9.6 gm/dL (11.6-15.3); Lymph # (Auto) 0.7 th/mm3 (1.0-4.8); Lymph % (Auto) 13.1 % (9.0-44.0); Mean Corpuscular HGB Conc 34.9 % (32.0-36.0); Mean Corpuscular Hemoglobin 31.2 pg (27.0-34.0); Mean Corpuscular Volume 89.4 fL (80.0-100.0); Mean Platelet Volume 7.2 fL (7.0-11.0); Mono # (Auto) 0.3 th/mm3 (0.0-0.9); Mono % (Auto) 6.7 % (0.0-8.0); Neut # (Auto) 3.8 th/mm3 (1.8-7.7); Neut % (Auto) 75.8 % (16.0-70.0); Platelet Count 128 th/mm3 (150-450); Red Blood Count 3.09 mil/mm3 (4.00-5.30); Red Cell Distribution Width 16.1 % (11.6-17.2)
[2018-08-30 07:15] LABS: Alanine Aminotransferase 25 U/L (10-53); Albumin 2.6 g/dL (3.4-5.0); Anion Gap 3 meq/L (5-15); Aspartate Aminotransferase 22 U/L (15-37); Blood Urea Nitrogen 12 mg/dL (7-18); Calcium 7.7 mg/dL (8.5-10.1); Carbon Dioxide 29.6 meq/L (21.0-32.0); Chloride 110 meq/L (98-107); Glomerular Filtration Rate Greater Than 89 mL/min (>89); Glucose,Random 133 mg/dL (74-106); Potassium 3.6 meq/L (3.5-5.1); Sodium 143 meq/L (136-145)
[2018-08-30 07:17] LABS: Alkaline Phosphatase 40 U/L (45-117); Total Protein 4.7 g/dL (6.4-8.2)
[2018-08-30] MEDS: Calcium Carbonate 500 MG Tablet PO SCH ×2 (10:06→20:15)
[2018-08-30] MEDS: Hydroxychloroquine 200 MG Tablet PO SCH (10:06)
[2018-08-30] MEDS: Pantoprazole Inj 40 MG Vial IV.PUSH SCH ×2 (10:09→22:00)
--- NOTE | 2018-08-30 13:20 | P.PN ---
Subjective Interval history: Follow-up with LGI bleed August 29, 2018-patient seen and examined, she was evaluated by interventional radiology yesterday but no active bleed was seen. Patient had one bowel movement yesterday with spotting of blood but None this morning. Denies any shortness of breath, chest pain. August 30, 2018-patient seen and examined; H/H improved post transfusion, however patient with still episode of Blood per rectum.+loose stools x3-4 today Physical Exam Vital signs: Vital Signs 08/29/18 13:29 08/29/18 16:00 08/29/18 20:00 Temperature 99.7 F H 98.9 F 98.6 F Pulse Rate 80 88 82 Respiratory Rate 20 18 14 Blood Pressure 114/59 L 125/71 126/74 Pulse Oximetry 97 96 99 08/30/18 00:00 08/30/18 00:48 08/30/18 04:00 Temperature 98.2 F 98.5 F Pulse Rate 78 84 87 Respiratory Rate 16 18 Blood Pressure 118/63 151/73 H Pulse Oximetry 100 97 08/30/18 07:00 08/30/18 08:00 08/30/18 12:00 Temperature 98.2 F 98.4 F Pulse Rate 79 77 89 Respiratory Rate 20 20 Blood Pressure 121/69 146/61 H Pulse Oximetry 98 97 Intake & Output 08/29/18 08/30/18 08/30/18 18:59 06:59 18:59 Intake Total 1600 / 1600 720 / 720 Output Total 1600 / 1600 4 / 4 Balance 0 / 0 720 / 720 -4 / -4 Weight 81.1 kg Intake: Oral 1200 / 1200 720 / 720 Intake (Blood Product) Amt 400 / 400 Rbc As-3 Leukoreduced Unit 400 / 400 [id number] Output: Urine 1600 / 1600 2 / 2 Stool 2 / 2 Other: # Voids 5 Date of Last Bowel Movement 08/28/18 08/29/18 08/30/18 Narrative: GENERAL: NAD SKIN: Warm and dry. HEAD: Atraumatic. Normocephalic. EYES: Pupils equal and round. No scleral icterus. No injection or drainage. s/p repair laceration around right eye ENT: No nasal bleeding or discharge. Mucous membranes pink and moist. NECK: Trachea midline. No JVD. CARDIOVASCULAR: Regular rate and rhythm. RESPIRATORY: No accessory muscle use. Clear to auscultation. Breath sounds equal bilaterally. GASTROINTESTINAL: Abdomen soft, mildly tender, nondistended. Hepatic and splenic margins not palpable. MUSCULOSKELETAL: Extremities without clubbing, cyanosis, or edema. No obvious deformities. NEUROLOGICAL: Awake and alert. No obvious cranial nerve deficits. Motor grossly within normal limits. Five out of 5 muscle strength in the arms and legs. Normal speech. PSYCHIATRIC: Appropriate mood and affect; insight and judgment normal. Results - Labs CBC & Chem 7: 08/30/18 06:22 08/30/18 06:22 Laboratory Results - last 24 hr 08/26/18 08/29/18 08/29/18 16:34 10:32 16:45 WBC RBC Hgb Hct MCV MCH MCHC RDW Plt Count MPV Neut % (Auto) Lymph % (Auto) [place] % (Auto) Eos % (Auto) Baso % (Auto) Neut # (Auto) Lymph # (Auto) [place] # (Auto) Eos # (Auto) Baso # (Auto) WBC Differential Differential Comment Sodium Potassium Chloride Carbon Dioxide Anion Gap BUN Creatinine Estimated GFR POC Glucose 164 H Random Glucose Calcium Total Bilirubin AST ALT Alkaline Phosphatase Total Protein Albumin MTS Gel Crossmatch See Detail See Detail 08/30/18 08/30/18 08/30/18 01:20 06:22 06:22 WBC 5.0 RBC 3.09 L Hgb 9.6 L Hct 27.6 L MCV 89.4 MCH 31.2 MCHC 34.9 RDW 16.1 Plt Count 128 L MPV 7.2 Neut % (Auto) 75.8 H Lymph % (Auto) 13.1 [place] % (Auto) 6.7 Eos % (Auto) 4.0 Baso % (Auto) 0.4 Neut # (Auto) 3.8 Lymph # (Auto) 0.7 L [place] # (Auto) 0.3 Eos # (Auto) 0.2 Baso # (Auto) 0.0 WBC Differential . Differential Comment Auto diff final Sodium 143 Potassium 3.6 Chloride 110 H Carbon Dioxide 29.6 Anion Gap 3 L BUN 12 Creatinine 0.62 Estimated GFR Greater than 89 POC Glucose 143 H Random Glucose 133 H Calcium 7.7 L Total Bilirubin 0.6 AST 22 ALT 25 Alkaline Phosphatase 40 L Total Protein 4.7 L D Albumin 2.6 L MTS Gel Crossmatch - Procedures Colonoscopy Assessment and Plan - Plan 72-year-old female with Syncope likely secondary to underlying GI bleed - echo unremarkable -PT consult to treat and eval GI bleed Likely diverticular bleed, colonoscopy x2 showing some residual blood with no active source of bleeding, bleeding scan positive in transverse colon -Abdominal angiography 08/28/18-Unremarkable 3 vessel mesenteric angiography including subselective right colic angiograms. No evidence for active hemorrhage at this time. GI following Patient evaluated by interventional radiology August 28, 2018, and no active bleed seen -Appreciate input from general surgery consulted for evaluation for possible hemicolectomy versus other, however recommend at this time medical management -s/p 7units PRBC transfused since admission Hypertension -continue home bp meds Dyslipidemia -home simvastatin Diabetes type 2 -continue metformin and glyburide Rheumatoid arthritis Refrain from NSAIDs SCDs for now, avoid anticoagulants due to bleeding risk Monitor CBC
--- NOTE | 2018-08-30 14:42 | P.PNGI ---
Subjective Interval history: Patient sitting up in bed Spouse at bedside States tolerating regular diet well Reports streaks of bright red blood noted in BM this a.m. Denies dizziness or weakness Physical Exam Vital signs: Vital Signs 08/29/18 16:00 08/29/18 20:00 08/30/18 00:00 Temperature 98.9 F 98.6 F 98.2 F Pulse Rate 88 82 78 Respiratory Rate 18 14 16 Blood Pressure 125/71 126/74 118/63 Pulse Oximetry 96 99 100 08/30/18 00:48 08/30/18 04:00 08/30/18 07:00 Temperature 98.5 F Pulse Rate 84 87 79 Respiratory Rate 18 Blood Pressure 151/73 H Pulse Oximetry 97 08/30/18 08:00 08/30/18 12:00 Temperature 98.2 F 98.4 F Pulse Rate 77 89 Respiratory Rate 20 20 Blood Pressure 121/69 146/61 H Pulse Oximetry 98 97 Intake & Output 08/29/18 08/30/18 08/30/18 18:59 06:59 18:59 Intake Total 1600 / 1600 720 / 720 Output Total 1600 / 1600 4 / 4 Balance 0 / 0 720 / 720 -4 / -4 Weight 81.1 kg Intake: Oral 1200 / 1200 720 / 720 Intake (Blood Product) Amt 400 / 400 Rbc As-3 Leukoreduced Unit 400 / 400 [id number] Output: Urine 1600 / 1600 2 / 2 Stool 2 / 2 Other: # Voids 5 Date of Last Bowel Movement 08/28/18 08/29/18 08/30/18 - Constitutional no acute distress - Routine HEENT Exam Head: Present: normocephalic - Routine Respiratory Exam Present: CTA bilaterally - Routine Abdominal Exam Present: soft, normoactive bowel sounds. Absent: tenderness, distended, guarding, firm - Routine Skin Exam Present: dry, warm - Routine Neurological Exam Present: alert - Routine Psychiatric Exam Present: normal affect, cooperative Results - Labs CBC & Chem 7: 08/30/18 06:22 08/30/18 06:22 Laboratory Results - last 24 hr 08/29/18 08/29/18 08/30/18 10:32 16:45 01:20 WBC RBC Hgb Hct MCV MCH MCHC RDW Plt Count MPV Neut % (Auto) Lymph % (Auto) [place] % (Auto) Eos % (Auto) Baso % (Auto) Neut # (Auto) Lymph # (Auto) [place] # (Auto) Eos # (Auto) Baso # (Auto) WBC Differential Differential Comment Sodium Potassium Chloride Carbon Dioxide Anion Gap BUN Creatinine Estimated GFR POC Glucose 164 H 143 H Random Glucose Calcium Total Bilirubin AST ALT Alkaline Phosphatase Total Protein Albumin MTS Gel Crossmatch See Detail 08/30/18 08/30/18 06:22 06:22 WBC 5.0 RBC 3.09 L Hgb 9.6 L Hct 27.6 L MCV 89.4 MCH 31.2 MCHC 34.9 RDW 16.1 Plt Count 128 L MPV 7.2 Neut % (Auto) 75.8 H Lymph % (Auto) 13.1 [place] % (Auto) 6.7 Eos % (Auto) 4.0 Baso % (Auto) 0.4 Neut # (Auto) 3.8 Lymph # (Auto) 0.7 L [place] # (Auto) 0.3 Eos # (Auto) 0.2 Baso # (Auto) 0.0 WBC Differential . Differential Comment Auto diff final Sodium 143 Potassium 3.6 Chloride 110 H Carbon Dioxide 29.6 Anion Gap 3 L BUN 12 Creatinine 0.62 Estimated GFR Greater than 89 POC Glucose Random Glucose 133 H Calcium 7.7 L Total Bilirubin 0.6 AST 22 ALT 25 Alkaline Phosphatase 40 L Total Protein 4.7 L D Albumin 2.6 L MTS Gel Crossmatch - Procedures Colonoscopy Assessment and Plan - Plan 08/29/2018 GI bleed -Patient sitting up in bedside, states small bowel movement last evening. Denies any obvious bleeding. -08/25/2018 colonoscopy: Severe diverticulosis was noted in the sigmoid colon 2. Blood present throughout the colon. Terminal illeum blood free 3. Retroflexed views revealed internal hemorrhoids 4. Retroflexed views revealed small internal hemorrhoids 5. Revealed external hemorrhoids -08/28/2018 Abdominal Angiography: Unremarkable 3 vessel mesenteric angiography including subselective right colic angiograms. No evidence for active hemorrhage at this time. -(08/29) hemoglobin 7.8 hematocrit 21.9 08/30/2018 GI bleed Patient reports streaks of red blood noted in BM this a.m. Denies any abdominal pain nausea vomiting. Hemoglobin 9.6 hematocrit 27.6 stable Plan -Diabetic diet as tolerated -Monitor for bleeding -Transfuse if needed -Monitor hemoglobin and hematocrit -Zofran as needed for nausea -Continue PPI -Supportive care -Further recommendations to follow This patient was seen by myself and Dr. Walker and this note is written on his behalf - Attending Attestation Dr. Walker
--- NOTE | 2018-08-30 20:14 | US ---
EXAM DATE: 08/30/2018 8:10 PM EST AGE/SEX: 72 years / Female INDICATIONS: Thrombosis. CLINICAL DATA: This is the patient's initial encounter. Patient reports that signs and symptoms have been present for 1 day and indicates a pain score of 1/10. MEDICAL/SURGICAL HISTORY: . Diabetes. High cholesterol. Vertigo. None. COMPARISON: No prior exams available for comparison. FINDINGS: The vessels are compressible and augmentation response is documented. No filling defects a re seen. The flow is phasic with respiration. Other: None. CONCLUSION: Negative study. No venous thrombosis of the left upper extremity. Electronically signed by: Jase Farrell MD 08/30/2018 8:13 PM EST
[2018-08-30] MEDS: Latanoprost 0.005% Opth Drops 2.5 ML Bottle EACH EYE SCH (20:16)
--- NOTE | 2018-08-30 20:38 | P.PN ---
Subjective Interval history: Reports dark bloody stool today, but feels well. Physical Exam Vital signs: Vital Signs 08/30/18 00:00 08/30/18 00:48 08/30/18 04:00 Temperature 98.2 F 98.5 F Pulse Rate 78 84 87 Respiratory Rate 16 18 Blood Pressure 118/63 151/73 H Pulse Oximetry 100 97 08/30/18 07:00 08/30/18 08:00 08/30/18 12:00 Temperature 98.2 F 98.4 F Pulse Rate 79 77 89 Respiratory Rate 20 20 Blood Pressure 121/69 146/61 H Pulse Oximetry 98 97 08/30/18 15:56 Temperature 98.6 F Pulse Rate 79 Respiratory Rate 20 Blood Pressure 139/62 Pulse Oximetry 98 Intake & Output 08/30/18 08/30/18 08/31/18 06:59 18:59 06:59 Intake Total 720 / 720 Output Total 7 / 7 Balance 720 / 720 -7 / -7 Weight 81.1 kg Intake: Oral 720 / 720 Output: Urine 4 / 4 Stool 3 / 3 Other: # Voids 5 Date of Last Bowel Movement 08/29/18 08/30/18 - Constitutional no acute distress - Routine Abdominal Exam Present: soft Comments: nontender, nondistended Results - Labs CBC & Chem 7: 08/30/18 06:22 08/30/18 06:22 Laboratory Results - last 24 hr 08/30/18 08/30/18 08/30/18 01:20 06:22 06:22 WBC 5.0 RBC 3.09 L Hgb 9.6 L Hct 27.6 L MCV 89.4 MCH 31.2 MCHC 34.9 RDW 16.1 Plt Count 128 L MPV 7.2 Neut % (Auto) 75.8 H Lymph % (Auto) 13.1 [place] % (Auto) 6.7 Eos % (Auto) 4.0 Baso % (Auto) 0.4 Neut # (Auto) 3.8 Lymph # (Auto) 0.7 L [place] # (Auto) 0.3 Eos # (Auto) 0.2 Baso # (Auto) 0.0 WBC Differential . Differential Comment Auto diff final Sodium 143 Potassium 3.6 Chloride 110 H Carbon Dioxide 29.6 Anion Gap 3 L BUN 12 Creatinine 0.62 Estimated GFR Greater than 89 POC Glucose 143 H Random Glucose 133 H Calcium 7.7 L Total Bilirubin 0.6 AST 22 ALT 25 Alkaline Phosphatase 40 L Total Protein 4.7 L D Albumin 2.6 L 08/30/18 17:16 WBC RBC Hgb Hct MCV MCH MCHC RDW Plt Count MPV Neut % (Auto) Lymph % (Auto) [place] % (Auto) Eos % (Auto) Baso % (Auto) Neut # (Auto) Lymph # (Auto) [place] # (Auto) Eos # (Auto) Baso # (Auto) WBC Differential Differential Comment Sodium Potassium Chloride Carbon Dioxide Anion Gap BUN Creatinine Estimated GFR POC Glucose 74 Random Glucose Calcium Total Bilirubin AST ALT Alkaline Phosphatase Total Protein Albumin - Imaging Impressions Venous Doppler Study 08/30/18 00:00 CONCLUSION: Negative study. No venous thrombosis of the left upper extremity. - Procedures Colonoscopy Assessment and Plan - Assessment (1) Bright red rectal bleeding Code(s): K62.5 - Hemorrhage of anus and rectum Status: Acute Plan: Continue to monitor; if acute bleeding again, IR vs. proximal transverse colectomy. - Plan Discussed Condition With: Patient - Attending Attestation I attest that I had a [id number] encounter with the patient on the same day, and personally performed and documented my assessment and findings in the medical record. The following services were provided during this hospital visit: Chart data review, vital sign assessments/reviewing monitor data Review of consultation notes if present Medication orders/review and/or management Ordering and/or reviewing lab tests Ordering and/or interpreting/reviewing x-rays and/or diagnostic studies Care of the patient and discussion of the patient with the care team Documentation time To help prompt me to consider important information that might be impacting today's encounter and assessment, Information from prior notes written by myself or my colleagues may have been "brought forward/copy and pasted" into today's note.
[2018-08-30] MEDS: Acetaminophen 325 MG Tablet PO PRN (22:21)
[2018-08-31 06:12] LABS: Baso % (Auto) 0.4 % (0.0-2.0); Eos # (Auto) 0.2 th/mm3 (0.0-0.4); Eos % (Auto) 4.8 % (0.0-4.0); Hematocrit 29.3 % (35.0-46.0); Lymph # (Auto) 0.6 th/mm3 (1.0-4.8); Lymph % (Auto) 14.8 % (9.0-44.0); Mean Corpuscular HGB Conc 34.1 % (32.0-36.0); Mean Platelet Volume 7.3 fL (7.0-11.0); Mono # (Auto) 0.3 th/mm3 (0.0-0.9); Mono % (Auto) 7.5 % (0.0-8.0); Neut # (Auto) 3.2 th/mm3 (1.8-7.7); Neut % (Auto) 72.5 % (16.0-70.0); Platelet Count 153 th/mm3 (150-450); Red Blood Count 3.22 mil/mm3 (4.00-5.30); Red Cell Distribution Width 15.9 % (11.6-17.2); White Blood Count 4.3 th/mm3 (4.0-11.0)
[2018-08-31 06:34] LABS: Albumin 2.9 g/dL (3.4-5.0); Anion Gap 6 meq/L (5-15); Aspartate Aminotransferase 26 U/L (15-37); Blood Urea Nitrogen 12 mg/dL (7-18); Calcium 8.1 mg/dL (8.5-10.1); Carbon Dioxide 26.9 meq/L (21.0-32.0); Chloride 112 meq/L (98-107); Glomerular Filtration Rate 89 mL/min (>89); Glucose,Random 76 mg/dL (74-106); Potassium 3.8 meq/L (3.5-5.1); Sodium 145 meq/L (136-145)
[2018-08-31 06:37] LABS: Alanine Aminotransferase 29 U/L (10-53); Alkaline Phosphatase 48 U/L (45-117); Total Protein 5.2 g/dL (6.4-8.2)
[2018-08-31] MEDS: Pantoprazole Inj 40 MG Vial IV.PUSH SCH (09:12)
[2018-08-31] MEDS: Calcium Carbonate 500 MG Tablet PO SCH (09:12)
[2018-08-31] MEDS: Hydroxychloroquine 200 MG Tablet PO SCH (09:12)
--- NOTE | 2018-08-31 11:33 | P.PNIM ---
Subjective Interval history: Follow up LBI bleed Patient seen and examined while sitting up in a chair in her room. Her is at the bedside. She states she had a bowel movement yesterday with a small amount of what she believed to be blood. Today no further episodes of rectal bleeding noted. Hemoglobin 10 and patient states this is the highest it has been. She is currently on a diabetic diet and tolerating this well. Physical Exam Vital signs: Last Vital Signs Temp 98.0 F 08/31/18 04:00 Pulse 90 08/31/18 08:00 Resp 17 08/31/18 04:00 BP 129/64 08/31/18 04:00 Pulse Ox 98 08/31/18 04:00 Intake & Output 08/29/18 08/30/18 08/31/18 09/01/18 06:59 06:59 06:59 06:59 Intake Total 2168 / 2168 2320 / 2320 850 / 850 Output Total 400 / 400 1600 / 1600 7 / Balance 1768 / 1768 720 / 720 843 / 843 Weight 81.1 kg 81.1 kg 81 kg Narrative: GENERAL: NAD SKIN: warm and dry HEAD: Atraumatic. Normocephalic. EYES: Pupils equal and round. No scleral icterus. No injection or drainage. s/p repair laceration around right eye ENT: No nasal bleeding or discharge. Mucous membranes pink and moist. NECK: Trachea midline. No JVD. CARDIOVASCULAR: Regular rate and rhythm. RESPIRATORY: No accessory muscle use. Clear to auscultation. Breath sounds equal bilaterally. GASTROINTESTINAL: Abdomen soft, mildly tender, nondistended. MUSCULOSKELETAL: Extremities without clubbing, cyanosis, or edema. No obvious deformities. NEUROLOGICAL: Awake and alert. No obvious cranial nerve deficits. Motor grossly within normal limits. Five out of 5 muscle strength in the arms and legs. Normal speech. PSYCHIATRIC: Appropriate mood and affect; insight and judgment normal. Results Labs CBC & Chem 7: 08/31/18 05:57 08/31/18 05:57 Imaging Imaging: Impressions Venous Doppler Study 08/30/18 00:00 CONCLUSION: Negative study. No venous thrombosis of the left upper extremity. Procedures Procedures: Colonoscopy Assessment and Plan Plan Syncope - evaluated 08/31/18, no further episodes since admission likely secondary to underlying GI bleed -echo unremarkable -PT consult to treat and eval GI bleed - evaluated 08/31/18 likely diverticular bleed, colonoscopy x2 showing some residual blood with no active source of bleeding, bleeding scan positive in transverse colon -Abdominal angiography 08/28/18-Unremarkable 3 vessel mesenteric angiography including subselective right colic angiograms. No evidence for active hemorrhage at this time. GI following Patient evaluated by interventional radiology August 28, 2018, and no active bleed seen -Gen surgery consulted for evaluation for possible hemicolectomy versus other, however, recommends medical management at present time. If acute bleeding again , IR vs proximal transverse colectomy. -s/p 7units PRBC transfused since admission, H/H 08/04.3 Hypertension, chronic - evaluated 08/31/18, normotensive -continue home bp meds -continue to monitor vital signs per unit protocol Dyslipidemia -home simvastatin Diabetes type 2 - evaluated 08/31/18, controlled -continue metformin and glyburide -ADA diet Rheumatoid arthritis Refrain from NSAIDs MDM: self Code: Full GI ppx: PPI DVT ppx: SCD's Progress Note: Quality VTE Deep Vein Thrombosis/Pulmonary Embolism Present on Admission: No
--- NOTE | 2018-08-31 11:58 | P.PNGS ---
Subjective Patient reports: feels better, bowel movement, afebrile (reports no dark or bloody BM today) Physical Exam Vital signs: Vital Signs 08/30/18 12:00 08/30/18 15:56 08/30/18 20:00 Temperature 98.4 F 98.6 F Pulse Rate 89 79 86 Respiratory Rate 20 20 Blood Pressure 146/61 H 139/62 Pulse Oximetry 97 98 98 08/31/18 00:00 08/31/18 04:00 08/31/18 08:00 Temperature 97.7 F 98.0 F 98.4 F Pulse Rate 77 90 88 Respiratory Rate 16 17 18 Blood Pressure 123/64 129/64 127/62 Pulse Oximetry 98 98 99 Intake & Output 08/30/18 08/31/18 08/31/18 18:59 06:59 18:59 Intake Total 850 / 850 Output Total 7 / 7 Balance -7 / -7 850 / 850 Weight 81 kg Intake: Oral 850 / 850 Output: Urine 4 / 4 Stool 3 / 3 Other: # Voids 4 Date of Last Bowel Movement 08/30/18 08/30/18 08/30/18 # Bowel Movements 1 - Routine Abdominal Exam Present: soft, normoactive bowel sounds Results - Labs 08/31/18 05:57 08/31/18 05:57 Laboratory Results - last 24 hr 08/30/18 08/31/18 08/31/18 17:16 00:22 00:23 WBC RBC Hgb Hct MCV MCH MCHC RDW Plt Count MPV Neut % (Auto) Lymph % (Auto) [place] % (Auto) Eos % (Auto) Baso % (Auto) Neut # (Auto) Lymph # (Auto) [place] # (Auto) Eos # (Auto) Baso # (Auto) WBC Differential Differential Comment Sodium Potassium Chloride Carbon Dioxide Anion Gap BUN Creatinine Estimated GFR POC Glucose 74 54 L 54 L Random Glucose Calcium Total Bilirubin AST ALT Alkaline Phosphatase Total Protein Albumin 08/31/18 08/31/18 08/31/18 00:52 01:49 05:57 WBC 4.3 RBC 3.22 L Hgb 10.0 L Hct 29.3 L MCV 91.0 MCH 31.0 MCHC 34.1 RDW 15.9 Plt Count 153 MPV 7.3 Neut % (Auto) 72.5 H Lymph % (Auto) 14.8 [place] % (Auto) 7.5 Eos % (Auto) 4.8 H Baso % (Auto) 0.4 Neut # (Auto) 3.2 Lymph # (Auto) 0.6 L [place] # (Auto) 0.3 Eos # (Auto) 0.2 Baso # (Auto) 0.0 WBC Differential . Differential Comment Auto diff final Sodium Potassium Chloride Carbon Dioxide Anion Gap BUN Creatinine Estimated GFR POC Glucose 69 90 Random Glucose Calcium Total Bilirubin AST ALT Alkaline Phosphatase Total Protein Albumin 08/31/18 08/31/18 05:57 06:00 WBC RBC Hgb Hct MCV MCH MCHC RDW Plt Count MPV Neut % (Auto) Lymph % (Auto) [place] % (Auto) Eos % (Auto) Baso % (Auto) Neut # (Auto) Lymph # (Auto) [place] # (Auto) Eos # (Auto) Baso # (Auto) WBC Differential Differential Comment Sodium 145 Potassium 3.8 Chloride 112 H Carbon Dioxide 26.9 Anion Gap 6 BUN 12 Creatinine 0.66 Estimated GFR 89 POC Glucose 86 Random Glucose 76 Calcium 8.1 L Total Bilirubin 0.3 AST 26 ALT 29 Alkaline Phosphatase 48 Total Protein 5.2 L Albumin 2.9 L - Imaging Imaging: ITS Impressions Head CT 08/24/18 00:00 CONCLUSION: 1. Negative CT Head non contrast. . Abdomen/Pelvis CT 08/24/18 07:57 CONCLUSION: 1. 5 cm soft tissue attenuating mass identified within the lumen of the cecum at the ileocecal valve. This could represent a bolus of stool, however, given the patient's clinical presentation a mass in this location should be further evaluated with colonoscopy. 2. No evidence of inflammatory process within the abdomen or pelvis or evidence of adenopathy. GI Bleed Scan Nuclear Medicine 08/25/18 16:15 CONCLUSION: Positive GI bleeding scan with hemorrhage in the right quadrant believed to be in the proximal transverse colon. Abdominal Angiography 08/28/18 00:00 CONCLUSION: 1. Unremarkable 3 vessel mesenteric angiography including subselective right colic angiograms. No evidence for active hemorrhage at this time. Venous Doppler Study 08/30/18 00:00 CONCLUSION: Negative study. No venous thrombosis of the left upper extremity. Assessment and Plan - Assessment (1) Bright red rectal bleeding Code(s): K62.5 - Hemorrhage of anus and rectum Status: Acute Plan: 72 year old female with LGIB -S/p IR evaluation--- no active bleeding -Hmg 7.8 today; BP and HR stable -No further bright red blood -Diet per GI -If she starts bleeding again-- would likely benefit from IR evaluation first; if unsuccessful may need to discuss surgery -I talked with Case Management--- they will talk to her about the possibility of her identify being stolen and next steps - Plan stable, HH going up continue nonoperative management defer further CASAS to GI to identify source
[2018-08-31 12:41] VITALS: BP 118/66; PULSE 92; RESP 20; TEMP 98.6; O2SAT 98
--- NOTE | 2018-08-31 14:15 | P.PNGI ---
Subjective Interval history: Patient sitting up in bedside chair Denies any abdominal pain nausea vomiting Denies any bleeding <NaveedLuisana - Last Filed: 08/31/18 16:04> Physical Exam Vital signs: Vital Signs 08/30/18 15:56 08/30/18 20:00 08/31/18 00:00 Temperature 98.6 F 97.7 F Pulse Rate 79 86 77 Respiratory Rate 20 16 Blood Pressure 139/62 123/64 Pulse Oximetry 98 98 98 08/31/18 04:00 08/31/18 08:00 08/31/18 12:00 Temperature 98.0 F 98.4 F 98.6 F Pulse Rate 90 88 92 H Respiratory Rate 17 18 20 Blood Pressure 129/64 127/62 118/66 Pulse Oximetry 98 99 98 Intake & Output 08/30/18 08/31/18 08/31/18 18:59 06:59 18:59 Intake Total 850 / 850 Output Total 7 / 7 Balance -7 / -7 850 / 850 Weight 81 kg Intake: Oral 850 / 850 Output: Urine 4 / 4 Stool 3 / 3 Other: # Voids 4 Date of Last Bowel Movement 08/30/18 08/30/18 08/30/18 # Bowel Movements 1 - Constitutional no acute distress - Routine HEENT Exam Head: Present: normocephalic - Routine Respiratory Exam Present: CTA bilaterally. Absent: accessory muscle use - Routine Abdominal Exam Present: soft, normoactive bowel sounds. Absent: tenderness, distended, firm - Routine Skin Exam Present: dry, warm - Routine Neurological Exam Present: alert - Routine Psychiatric Exam Present: normal affect, cooperative <LucioLuisana - Last Filed: 08/31/18 16:04> Vital signs: Intake & Output 08/31/18 09/01/18 09/01/18 18:59 06:59 18:59 Other: Date of Last Bowel Movement 08/30/18 <Arjun Walker - Last Filed: 09/01/18 17:48> Results - Labs CBC & Chem 7: 08/31/18 05:57 08/31/18 05:57 Laboratory Results - last 24 hr 08/30/18 08/31/18 08/31/18 17:16 00:22 00:23 WBC RBC Hgb Hct MCV MCH MCHC RDW Plt Count MPV Neut % (Auto) Lymph % (Auto) [place] % (Auto) Eos % (Auto) Baso % (Auto) Neut # (Auto) Lymph # (Auto) [place] # (Auto) Eos # (Auto) Baso # (Auto) WBC Differential Differential Comment Sodium Potassium Chloride Carbon Dioxide Anion Gap BUN Creatinine Estimated GFR POC Glucose 74 54 L 54 L Random Glucose Calcium Total Bilirubin AST ALT Alkaline Phosphatase Total Protein Albumin 08/31/18 08/31/18 08/31/18 00:52 01:49 05:57 WBC 4.3 RBC 3.22 L Hgb 10.0 L Hct 29.3 L MCV 91.0 MCH 31.0 MCHC 34.1 RDW 15.9 Plt Count 153 MPV 7.3 Neut % (Auto) 72.5 H Lymph % (Auto) 14.8 [place] % (Auto) 7.5 Eos % (Auto) 4.8 H Baso % (Auto) 0.4 Neut # (Auto) 3.2 Lymph # (Auto) 0.6 L [place] # (Auto) 0.3 Eos # (Auto) 0.2 Baso # (Auto) 0.0 WBC Differential . Differential Comment Auto diff final Sodium Potassium Chloride Carbon Dioxide Anion Gap BUN Creatinine Estimated GFR POC Glucose 69 90 Random Glucose Calcium Total Bilirubin AST ALT Alkaline Phosphatase Total Protein Albumin 08/31/18 08/31/18 08/31/18 05:57 06:00 12:17 WBC RBC Hgb Hct MCV MCH MCHC RDW Plt Count MPV Neut % (Auto) Lymph % (Auto) [place] % (Auto) Eos % (Auto) Baso % (Auto) Neut # (Auto) Lymph # (Auto) [place] # (Auto) Eos # (Auto) Baso # (Auto) WBC Differential Differential Comment Sodium 145 Potassium 3.8 Chloride 112 H Carbon Dioxide 26.9 Anion Gap 6 BUN 12 Creatinine 0.66 Estimated GFR 89 POC Glucose 86 105 Random Glucose 76 Calcium 8.1 L Total Bilirubin 0.3 AST 26 ALT 29 Alkaline Phosphatase 48 Total Protein 5.2 L Albumin 2.9 L - Imaging Impressions Venous Doppler Study 08/30/18 00:00 CONCLUSION: Negative study. No venous thrombosis of the left upper extremity. - Procedures Colonoscopy <Luisana Lucio - Last Filed: 08/31/18 16:04> - Labs CBC & Chem 7: 08/31/18 05:57 08/31/18 05:57 <Arjun Walker - Last Filed: 09/01/18 17:48> Assessment and Plan - Plan 08/29/2018 GI bleed -Patient sitting up in bedside, states small bowel movement last evening. Denies any obvious bleeding. -08/25/2018 colonoscopy: Severe diverticulosis was noted in the sigmoid colon 2. Blood present throughout the colon. Terminal illeum blood free 3. Retroflexed views revealed internal hemorrhoids 4. Retroflexed views revealed small internal hemorrhoids 5. Revealed external hemorrhoids -08/28/2018 Abdominal Angiography: Unremarkable 3 vessel mesenteric angiography including subselective right colic angiograms. No evidence for active hemorrhage at this time. -(08/29) hemoglobin 7.8 hematocrit 21.9 08/30/2018 GI bleed Patient reports streaks of red blood noted in BM this a.m. Denies any abdominal pain nausea vomiting. Hemoglobin 9.6 hematocrit 27.6 stable 08/31/2018 GI bleed Patient denies any noted bleeding, states BM brown and soft. Denies any abdominal pain nausea or vomiting Hemoglobin 10.0 hematocrit 29.3 stable Plan -Diet as tolerated -CBC post discharge -Zofran as needed for nausea -Continue PPI -Pt stable for discharge home per GI standpoint. Please instruct patient to follow up in 1 week This patient was seen by myself and Dr. Walker and this note is written on his behalf - Attending Attestation Dr. Walker <Luisana Lucio - Last Filed: 08/31/18 16:04> - Attending Attestation Discussed with patient management plan. Please notify us if needed again. <Arjun Walker - Last Filed: 09/01/18 17:48>
--- NOTE | 2018-08-31 17:55 | P.DS ---
DS: Providers Date of admission: 08/25/18 09:41 Primary care physician: PROVIDER NON STAFF Consults: 08/24/18 10:23 Consult to Gastroenterology Routine Consulting Provider: Noel Mendez Reason for Consultation: Lower GI bleed/mass Notified:: Service Spoke with:: ARCELIA Date Notified:: 08/24/18 Time Notified:: 10:36 Ordering Provider: BEN 08/28/18 10:01 Consult to General Surgery Routine Consulting Provider: Alireza Oneal Preferred Manager Front Office:: Alireza Oneal Reason for Consultation: refractory GI bleed; already spoke to Dr. Oneal Notified:: Service Spoke with:: QUIQUE Date Notified:: 08/28/18 Time Notified:: 10:11 Ordering Provider: DC DS: Diagnosis Discharge Diagnosis (1) Bright red rectal bleeding: Status: Acute DS: Summary Time Spent with Patient Total time spent providing and/or coordinating discharge services: Quality: VTE Deep Vein Thrombosis/Pulmonary Embolism Present on Admission: No Results Procedures completed during hospitalization: Colonoscopy Labs on day of discharge: Labs from last 24 hours 08/31/18 08/31/18 08/31/18 12:17 06:00 05:57 WBC RBC Hgb Hct MCV MCH MCHC RDW Plt Count MPV Neut % (Auto) Lymph % (Auto) [place] % (Auto) Eos % (Auto) Baso % (Auto) Neut # (Auto) Lymph # (Auto) [place] # (Auto) Eos # (Auto) Baso # (Auto) WBC Differential Differential Comment Sodium 145 Potassium 3.8 Chloride 112 H Carbon Dioxide 26.9 Anion Gap 6 BUN 12 Creatinine 0.66 Estimated GFR 89 POC Glucose 105 86 Random Glucose 76 Calcium 8.1 L Total Bilirubin 0.3 AST 26 ALT 29 Alkaline Phosphatase 48 Total Protein 5.2 L Albumin 2.9 L 08/31/18 08/31/18 08/31/18 05:57 01:49 00:52 WBC 4.3 RBC 3.22 L Hgb 10.0 L Hct 29.3 L MCV 91.0 MCH 31.0 MCHC 34.1 RDW 15.9 Plt Count 153 MPV 7.3 Neut % (Auto) 72.5 H Lymph % (Auto) 14.8 [place] % (Auto) 7.5 Eos % (Auto) 4.8 H Baso % (Auto) 0.4 Neut # (Auto) 3.2 Lymph # (Auto) 0.6 L [place] # (Auto) 0.3 Eos # (Auto) 0.2 Baso # (Auto) 0.0 WBC Differential . Differential Comment Auto diff final Sodium Potassium Chloride Carbon Dioxide Anion Gap BUN Creatinine Estimated GFR POC Glucose 90 69 Random Glucose Calcium Total Bilirubin AST ALT Alkaline Phosphatase Total Protein Albumin 08/31/18 08/31/18 00:23 00:22 WBC RBC Hgb Hct MCV MCH MCHC RDW Plt Count MPV Neut % (Auto) Lymph % (Auto) [place] % (Auto) Eos % (Auto) Baso % (Auto) Neut # (Auto) Lymph # (Auto) [place] # (Auto) Eos # (Auto) Baso # (Auto) WBC Differential Differential Comment Sodium Potassium Chloride Carbon Dioxide Anion Gap BUN Creatinine Estimated GFR POC Glucose 54 L 54 L Random Glucose Calcium Total Bilirubin AST ALT Alkaline Phosphatase Total Protein Albumin Impressions ITS Impressions Head CT 08/24/18 00:00 CONCLUSION: 1. Negative CT Head non contrast. . Abdomen/Pelvis CT 08/24/18 07:57 CONCLUSION: 1. 5 cm soft tissue attenuating mass identified within the lumen of the cecum at the ileocecal valve. This could represent a bolus of stool, however, given the patient's clinical presentation a mass in this location should be further evaluated with colonoscopy. 2. No evidence of inflammatory process within the abdomen or pelvis or evidence of adenopathy. GI Bleed Scan Nuclear Medicine 08/25/18 16:15 CONCLUSION: Positive GI bleeding scan with hemorrhage in the right quadrant believed to be in the proximal transverse colon. Abdominal Angiography 08/28/18 00:00 CONCLUSION: 1. Unremarkable 3 vessel mesenteric angiography including subselective right colic angiograms. No evidence for active hemorrhage at this time. Venous Doppler Study 08/30/18 00:00 CONCLUSION: Negative study. No venous thrombosis of the left upper extremity. Discharge Plan Discharge Disposition Patient Disposition: W/Home Health Service Discharge Condition Condition: Stable Discharge Order Discharge Orders: Discharge Order (Routine); Ordered 08/31/18 Ordered By: Noelle Soria Discharge Details Anticipated Discharge Date: 08/31/18 Physicians Team Primary Care Provider: NON STAFF,PROVIDER Attending Provider: Molly Murphy Other Providers: Noel Mendez ; Alireza Oneal ; [facility] Rxs /Orders / Referrals /Forms Prescriptions: New pantoprazole 40 mg tablet,delayed release (DR/EC) 40 mg PO DAILY Qty: 30 RF: 0 Continue losartan 50 mg Tablet PO DAILY RF: 0 metformin 500 mg Tablet 500 mg PO BID RF: 0 glyburide 5 mg Tablet 5 mg PO DAILY RF: 0 simvastatin 20 mg Tablet 20 mg PO QPM RF: 0 latanoprost [Xalatan] 0.005 % Drops 1 drops EACH EYE HS RF: 0 hydroxychloroquine [Plaquenil] 200 mg Tablet 200 mg PO DAILY RF: 0 Discontinued Plaquenil tablet 200 mg PO DAILY RF: 0 Ambulatory Orders / Order Sets / DME: Walker With Front Wheels (1 each) (Routine) Location: Determined by Patient Ordered By: Reinaldo Vanegas Referrals: Corky Gabriel MD [Physician] - See Instructions (Please follow up in 7-10 days) NON STAFF,PROVIDER [Primary Care Provider] - See Instructions (Please follow up with a primary care provider within 1 week) Discharge Instructions Patient Printed Instructions: Gastrointestinal Bleeding (DC) Additional Instructions: Your Health Problems: Goals to Promote Your Health: * To prevent worsening of your condition * To maintain your health at the optimal level Directions to Meet Your Goals: * Take your medications as prescribed * Follow your dietary instruction * Follow activity as directed * Keep your appointments as scheduled * Take your immunizations and boosters as scheduled * If your symptoms worsen call your PCP * If no PCP go to Urgent Care or Emergency Room Smoking is dangerous to your health. Avoid second hand smoke. You may reach the 24-hour crisis hotline for domestic abuse at . Status ED Status: Left Department
== END 2018-08-31 17:00 | disposition home health service (06) ==
LOC: PHED 07:20 → PHEDA 07:20 → PH3 11:35 → HCIN 08-28 11:31 → N06 08-30 07:54
PROVIDERS: ADMIT Hospitalist; ATTEND Hospitalist
PROC: COLONOS (2018-08-25 15:45)